=== PATIENT | female | born 1955 | race Caucasian/White ===

== ENCOUNTER → 2017-11-08 11:37 | Outpatient (CLI) | payer OTHER, SELFPAY ==
--- NOTE | 2017-11-08 11:41 | DI.RAD.S_ITS ---
PROCEDURE: XR CHEST 2V INDICATIONS: COUGH TECHNIQUE: 2 views of the chest were acquired. COMPARISON: [facility], CHEST 2 VIEW, 05/27/2016, 12:44. [facility], , CHEST FOR PICC PLACEMENT, 05/02/2016, 12:36. [facility], , CHEST FOR PICC PLACEMENT, 05/02/2016, 11:33. FINDINGS: Surgical changes and devices: None. Lungs and pleura: No pleural effusions or pneumothorax. Lungs are clear. Mediastinum: Mediastinal contours are normal. Heart size is normal. Bones and chest wall: No suspicious bony abnormalities. Soft tissues appear unremarkable. IMPRESSION: Normal for age, source of current symptoms is not seen. Dictated by: Seferino Segura M.D. on 11/08/2017 at 12:24 Approved by: Seferino Segura M.D. on 11/08/2017 at 12:24
== END ==
PROVIDERS: Family Provider Physician Assistant; PCP Physician Assistant; Visit Provider Student in an Organized Health Care Education/Training Program
DX: R05 Cough (principal)
CPT/HCPCS: 71046

== ENCOUNTER → 2018-04-13 14:44 | Outpatient (CLI) | payer OTHER, SELFPAY ==
--- NOTE | 2018-04-13 | DI.MG.S_ITS ---
BILATERAL DIGITAL SCREENING MAMMOGRAM 3D/2D WITH CAD: 04/13/2018 CLINICAL: Routine screening. Comparison is made to exams dated: 02/25/2016 mammogram, 08/09/2014 mammogram, and 06/13/2013 mammogram - [facility]. There are scattered fibroglandular elements in both breasts. Current study was also evaluated with a Computer Aided Detection (CAD) system. No significant masses, calcifications, or other findings are seen in either breast. There has been no significant interval change. IMPRESSION: NEGATIVE There is no mammographic evidence of malignancy. A 1 year screening mammogram is recommended. This exam was interpreted at Station ID: [id number]. NOTE: For mammograms, a report in lay terms will be sent to the patient. Approximately 15% of breast malignancies will not be visualized mammographically. In the management of a palpable breast mass, a negative mammogram must not discourage biopsy of a clinically suspicious lesion. Electronically Signed By: Michell sterling/mac:04/13/2018 16:32:15 letter sent: Normal Exam ACR BI-RADS Category 1: Negative 3341F
== END ==
PROVIDERS: Family Provider Physician Assistant; PCP Physician Assistant; Visit Provider Physician Assistant
DX: Z12.31 Encounter for screening mammogram for malignant neoplasm of breast (principal); M85.852 Other specified disorders of bone density and structure, left thigh; Z78.0 Asymptomatic menopausal state
CPT/HCPCS: 77063; 77067; 77080

== ENCOUNTER 2018-07-15 07:54 | Day surgery (SDC) | payer OTHER, SELFPAY ==
[2018-07-15] VITALS (8 sets, daily range): BP systolic 105–121; BP diastolic 69–78; PULSE 60–71; RESP 8–16; TEMP 36–36.6; O2SAT 92–96; BMI 29.9
[2018-07-15] MEDS: SODIUM CHLORIDE 0.9% 1,000 ML 200 ML IV (08:20)
--- NOTE | 2018-07-15 09:26 | PM.HP.1 ---
History of Present Illness Date Patient Seen: 07/15/18 Time Patient Seen: 09:18 Chief complaint: 13366 Colonoscopy Narrative: The patient is a woman who is here for screening colonoscopy. Her last exam was over 10 years ago. She does have a history of polyps being removed. on the operation was an appendectomy performed elsewhere after which she developed an abscess. Patient History Surgical History (Updated 07/15/18 @ 09:27 by Nick Cartagena MD) S/P appendectomy (Resolved) Social History household members: spouse Family & Social History Social History: household members spouse Review of Systems Review of Systems All systems reviewed & are unremarkable except as noted in HPI and below Exam Vital Signs (past 8 hours): - 07/15/18 08:15 Temperature 97.8 F Pulse Rate 71 Respiratory Rate 15 Blood Pressure 115/78 Pulse Oximetry 94 Oxygen Delivery Method Room Air Narrative Exam Narrative: Pleasant cooperative patient no apparent distress. Lungs are clear to auscultation. No rales or rhonchi. Heart regular rate and rhythm no murmur gallop. Abdomen is soft nontender without mass. No obvious hernias. Patient is alert and oriented x3. Assessment & Plan Assessment & Plan narrative: The patient for a screening colonoscopy. I have discussed the procedure with them. Risks of bleeding, perforation which would necessitate major operation, failure to find remove all lesions, the potential tattoo were all discussed. All questions were answered. They wished to proceed.
--- NOTE | 2018-07-15 09:28 | PM.PREOP ---
Pre-operative Note Interval Note History & Physical reviewed/Exam performed by Physician: Yes Changes to H&P: No ASA Class (for procedural sedation): I
[2018-07-15] MEDS: MIDAZOLAM 5 MG/5 ML VIAL IV (09:41)
[2018-07-15] MEDS: fentaNYL 250 MCG/5 ML INJ IV (09:41)
--- NOTE | 2018-07-15 10:02 | P.OP.ENDO_ITS ---
Operative Date/Time/Diagnoses Date of procedure: 07/15/18 Time of procedure: 09:59 Pre-op diagnosis: Screening examination. Last exam 10 years ago. Patient has a personal history of polyps. Last colonoscopy was done in [place]. Procedure & Clinicians Study performed: Colonoscopy Same procedure as scheduled: Yes Indications: Screening Surgeon: Nick Cartagena Procedure Notes SCOAP/Timeout: Performed Procedure in detail: The patient was placed in the left lateral decubitus position and underwent IV sedation directed by the surgeon consisting of fentanyl and Versed. Digital exam was remarkable for decreased sphincter tone and there were large visible external tags.. The scope was inserted and advanced through the rectum into the sigmoid, descending, transverse, and ascending colon. No lesions were seen. There was some tortuosity and pressure had to be applied to the patient's abdomen in order to get through the colon into the cecum. The cecum was reached identified by the ileocecal valve and the appendiceal opening. The scope was gradually brought out. No Polyps were found. The scope ultimately was retroflexed in the rectum. The appearance was remarkable for internal hemorrhoids without ulceration. The scope was removed and the patient tolerated the procedure well. Prep was very good. Scope withdrawal time: 7.5 minutes Sedation minutes: 27 Findings: internal hemorrhoids (And large external tags from prior hemorrhoidal disease) Specimen(s): none sent Complications: none Recommendations: Colonscopy in 5 years (Due to history of polyps) Plan for aftercare: As needed Follow up: as needed Disposition: PACU
--- NOTE | 2018-07-15 10:11 | SUR.PHASEII ---
Pt drowsy. Drink provided. Call light within reach. Pt declined family at this time.
== END 2018-07-15 11:22 | disposition home or self-care (01) ==
PROVIDERS: PCP Physician Assistant; Visit Provider Specialist
PROC: 0DJD8ZZ Inspection of Lower Intestinal Tract, Via Natural or Artificial Opening Endoscopic (ICD-10-PCS; CPT 45378; principal; 2018-07-15 09:45)
DX: Z86.010 Personal history of colon polyps (principal); K64.8 Other hemorrhoids; K64.4 Residual hemorrhoidal skin tags
CPT/HCPCS: 45378; 99152; 99153; J2250; J3010

== ENCOUNTER → 2018-08-25 15:02 | Outpatient (CLI) | payer OTHER, SELFPAY ==
--- NOTE | 2018-08-25 | DI.RAD.S_ITS ---
PROCEDURE: XR CHEST 2V INDICATIONS: Acute bronchitis, unspecified TECHNIQUE: 2 views of the chest were acquired. COMPARISON: [facility], CR, XR CHEST 2V, 11/08/2017, 11:29. FINDINGS: Surgical changes and devices: None. Lungs and pleura: Lungs are clear. No pleural effusions or pneumothorax. Mediastinum: Mediastinal contours are normal. Heart size is normal. Bones and chest wall: No suspicious bony abnormalities. Soft tissues appear unremarkable. IMPRESSION: No acute cardiopulmonary disease. Dictated by: Nayeli Aguirre M.D. on 08/25/2018 at 17:47 Approved by: Nayeli Aguirre M.D. on 08/25/2018 at 17:47
== END ==
PROVIDERS: PCP Student in an Organized Health Care Education/Training Program; Visit Provider Student in an Organized Health Care Education/Training Program
DX: J20.9 Acute bronchitis, unspecified (principal)
CPT/HCPCS: 71046

== ENCOUNTER → 2018-11-06 11:19 | Outpatient (CLI) | payer OTHER, SELFPAY | PROVIDERS: PCP Student in an Organized Health Care Education/Training Program; Visit Provider Physician Assistant | DX: N39.0 Urinary tract infection, site not specified (principal) | CPT/HCPCS: 87077; 87086; 87186 ==

== ENCOUNTER → 2019-04-25 08:54 | Outpatient (CLI) | payer MEDICARE, SELFPAY ==
--- NOTE | 2019-04-25 | DI.MG.S_ITS ---
BILATERAL DIGITAL SCREENING MAMMOGRAM 3D/2D WITH CAD: 04/25/2019 CLINICAL: Routine screening. Comparison is made to exams dated: 04/13/2018 mammogram - [facility], 02/25/2016 mammogram, and 08/09/2014 mammogram - [facility]. There are scattered fibroglandular elements in both breasts. Current study was also evaluated with a Computer Aided Detection (CAD) system. No significant masses, calcifications, or other findings are seen in either breast. There has been no significant interval change. IMPRESSION: NEGATIVE There is no mammographic evidence of malignancy. A 1 year screening mammogram is recommended. This exam was interpreted at Station ID: [id number]. NOTE: For mammograms, a report in lay terms will be sent to the patient. Approximately 15% of breast malignancies will not be visualized mammographically. In the management of a palpable breast mass, a negative mammogram must not discourage biopsy of a clinically suspicious lesion. Electronically Signed By: Michell sterling/mac:04/25/2019 09:29:42 letter sent: Normal Exam ACR BI-RADS Category 1: Negative 3341F
== END ==
PROVIDERS: PCP Student in an Organized Health Care Education/Training Program; Referring Provider Student in an Organized Health Care Education/Training Program; Visit Provider Student in an Organized Health Care Education/Training Program
DX: Z12.31 Encounter for screening mammogram for malignant neoplasm of breast (principal)
CPT/HCPCS: 77063; 77067

== ENCOUNTER → 2019-06-21 10:38 | Outpatient (CLI) | payer MEDICARE, SELFPAY ==
[2019-06-21 11:47] LABS: Add Manual Diff / Slide Review NO; Basophils Absolute Auto 0 /uL (0-100); Basophils Percent Auto 1.1 % (0-2); Eosinophils Absolute Auto 100 /uL (0-450); Hemoglobin 14.6 g/dL (12.0-16.0); Lymphocytes Absolute Auto 1500 /uL (1100-4500); Lymphocytes Percent Auto 42.7 % (25-40); Mean Corpuscular HGB Conc 33.9 % (30-36); Mean Corpuscular Hemoglobin 30.3 PG (26-34); Mean Corpuscular Volume 89.3 fL (80-100); Monocytes Absolute Auto 300 /uL (0-900); Monocytes Percent Auto 8.7 % (3-14); Neutrophils Absolute Auto 1600 /uL (1500-7000); Neutrophils Percent Auto 44.5 % (50-75); Platelet Count 336 X10^3/uL (150-400); Red Blood Cell Count 4.81 X10^6/uL (4.0-5.2); Red Cell Distribution Width 13.4 % (11.6-14.8); White Blood Cell Count 3.6 X10^3/uL (4.5-11.0)
[2019-06-21 12:09] LABS: BUN Creatinine Ratio 31.7 (6-22); Blood Urea Nitrogen 19 mg/dL (7-17); Calcium 9.8 mg/dL (8.4-10.2); Carbon Dioxide 28 mmol/L (22-32); Chloride 104 mmol/L (98-107); Cholesterol 236 mg/dL (140-199); Estimated Glomerular Filt Rate > 60.0 mL/min (>60); Glucose 94 mg/dL (80-110); HDL Cholesterol 54 mg/dL (40-60); HEMOLYSIS < 15 (0-50); LDL Cholesterol Calculated 159 mg/dL (<100); Potassium 4.4 mmol/L (3.4-5.1); Sodium 140 mmol/L (137-145); Triglycerides 117 mg/dL (35-150)
[2019-06-21 12:59] LABS: Thyroid Stimulating Hormone 1.31 uIU/mL (0.47-4.68)
[2019-06-21 13:01] LABS: Cancer Antigen 125 < 5.5 U/mL (0-35)
== END ==
PROVIDERS: PCP Student in an Organized Health Care Education/Training Program; Referring Provider Student in an Organized Health Care Education/Training Program; Visit Provider Student in an Organized Health Care Education/Training Program
DX: E78.2 Mixed hyperlipidemia (principal); E16.2 Hypoglycemia, unspecified
CPT/HCPCS: 36415; 80048; 80061; 84443; 85025; 86304

== ENCOUNTER → 2019-11-06 12:37 | Outpatient (CLI) | payer MEDICARE, SELFPAY ==
--- NOTE | 2019-11-06 | DI.RAD.S_ITS ---
PROCEDURE: XR CHEST 2V INDICATIONS: COUGH TECHNIQUE: 2 views of the chest were acquired. COMPARISON: [facility], CR, XR CHEST 2V, 08/25/2018, 15:04. [facility], CR, XR CHEST 2V, 11/08/2017, 11:29. FINDINGS: Surgical changes and devices: None. Lungs and pleura: Lungs are clear. No pleural effusions or pneumothorax. Mediastinum: Mediastinal contours are normal. Heart size is normal. Bones and chest wall: No suspicious bony abnormalities. Soft tissues appear unremarkable. IMPRESSION: Normal for age, source of current cough symptoms is not seen. Dictated by: Seferino Segura M.D. on 11/06/2019 at 15:42 Approved by: Seferino Segura M.D. on 11/06/2019 at 15:43
== END ==
PROVIDERS: PCP Student in an Organized Health Care Education/Training Program; Referring Provider Student in an Organized Health Care Education/Training Program; Visit Provider Student in an Organized Health Care Education/Training Program
DX: R05 Cough (principal)
CPT/HCPCS: 71046

== ENCOUNTER → 2020-04-12 09:11 | Outpatient (CLI) | payer OTHER, SELFPAY ==
--- NOTE | 2020-04-12 | DI.US.S_ITS ---
ULTRASOUND OF LEFT BREAST: 04/12/2020 CLINICAL: Focal left breast pain. Comparison is made to exams dated: 04/12/2020 mammogram, 04/25/2019 mammogram, 04/13/2018 mammogram - [facility], 02/25/2016 mammogram, 08/09/2014 mammogram, and 06/13/2013 mammogram - [facility]. Color flow and Doppler ultrasound of the left breast were performed. No abnormality which corresponds with the pain is seen. IMPRESSION: NEGATIVE There is no sonographic evidence of malignancy. There is no abnormality seen in the left breast to correspond with the pain in the lower outer quadrant. Return to annual mammogram screening schedule is recommended. This exam was interpreted at Station ID: [id number]. Electronically Signed By: Carlitos Garcia acr/:04/22/2020 08:57:49 letter sent: Normal Exam Ultrasound BI-RADS: 1 Negative
--- NOTE | 2020-04-12 | DI.MG.S_ITS ---
BILATERAL DIGITAL DIAGNOSTIC MAMMOGRAM 3D/2D: 04/12/2020 CLINICAL: Bilateral breast tenderness. Comparison is made to exams dated: 04/25/2019 mammogram, 04/13/2018 mammogram - [facility], and 02/25/2016 mammogram - [facility]. There are scattered fibroglandular elements in both breasts. No significant masses, calcifications, or other findings are seen in either breast. IMPRESSION: INCOMPLETE: NEEDS ADDITIONAL IMAGING EVALUATION There is no abnormality seen in the left breast to correspond with the pain at 9 o'clock, however, ultrasound is recommended. This exam was interpreted at Station ID: [id number]. NOTE: For mammograms, a report in lay terms will be sent to the patient. Approximately 15% of breast malignancies will not be visualized mammographically. In the management of a palpable breast mass, a negative mammogram must not discourage biopsy of a clinically suspicious lesion. Electronically Signed By: Carlitos Garcia acr/:04/22/2020 08:56:10 letter sent: Additional Imaging Needed ACR BI-RADS Category 0: Incomplete 3340F
== END ==
PROVIDERS: PCP Student in an Organized Health Care Education/Training Program; Referring Provider Student in an Organized Health Care Education/Training Program; Visit Provider Student in an Organized Health Care Education/Training Program
DX: R92.8 Other abnormal and inconclusive findings on diagnostic imaging of breast (principal); N64.4 Mastodynia
CPT/HCPCS: 76642; 77066; G0279

== ENCOUNTER → 2020-06-21 20:07 | Outpatient (ROUT) | payer OTHER, SELFPAY ==
[2020-06-21 21:20] LABS: Cancer Antigen 125 < 5.5 U/mL (0-35)
== END ==
PROVIDERS: PCP Student in an Organized Health Care Education/Training Program; Visit Provider Student in an Organized Health Care Education/Training Program
DX: Z12.89 Encounter for screening for malignant neoplasm of other sites (principal); Z80.41 Family history of malignant neoplasm of ovary
CPT/HCPCS: 86304

== ENCOUNTER → 2021-06-09 09:13 | Outpatient (CLI) | payer MEDICARE, SELFPAY ==
[2021-06-09 11:25] LABS: Add Manual Diff / Slide Review NO; Basophils Absolute Auto 0 /uL (0-100); Basophils Percent Auto 1.2 % (0-2); Eosinophils Absolute Auto 100 /uL (0-450); Eosinophils Percent Auto 2.4 % (2-4); Hematocrit 39.8 % (36-46); Hemoglobin 13.6 g/dL (12.0-16.0); Lymphocytes Absolute Auto 1600 /uL (1100-4500); Lymphocytes Percent Auto 50.1 % (25-40); Mean Corpuscular HGB Conc 34.2 % (30-36); Mean Corpuscular Hemoglobin 30.5 PG (26-34); Mean Corpuscular Volume 89.2 fL (80-100); Monocytes Absolute Auto 300 /uL (0-900); Neutrophils Absolute Auto 1200 /uL (1500-7000); Neutrophils Percent Auto 37.3 % (50-75); Platelet Count 326 X10^3/uL (150-400); Red Blood Cell Count 4.46 X10^6/uL (4.0-5.2); Red Cell Distribution Width 13.6 % (11.6-14.8); White Blood Cell Count 3.2 X10^3/uL (4.5-11.0)
[2021-06-09 12:33] LABS: Alanine Aminotransferase 32 IU/L (<35); Albumin 4.3 g/dL (3.5-5.0); Albumin Globulin Ratio 1.6 (1.0-2.8); Alkaline Phosphatase 73 U/L (38-126); Aspartate Aminotransferase 33 IU/L (14-36); BUN Creatinine Ratio 12.5 (6-22); Bilirubin Total 0.4 mg/dL (0.2-1.3); Blood Urea Nitrogen 8 mg/dL (7-17); Calcium 9.3 mg/dL (8.4-10.2); Carbon Dioxide 27 mmol/L (22-32); Chloride 107 mmol/L (98-107); Estimated Glomerular Filt Rate > 60.0 mL/min (>60); Globulin 2.7 g/dL (1.7-4.1); Glucose 87 mg/dL (80-110); HEMOLYSIS < 15 (0-50); Potassium 4.6 mmol/L (3.4-5.1); Sodium 141 mmol/L (137-145)
[2021-06-09 12:44] LABS: LDL Cholesterol Direct 88 mg/dL (<100)
[2021-06-09 18:13] LABS: Hep C Virus Ab w/Reflex Quant NEGATIVE s/c (NEGATIVE)
== END ==
PROVIDERS: PCP Student in an Organized Health Care Education/Training Program; Referring Provider Physician Assistant; Visit Provider Physician Assistant
DX: M85.88 Other specified disorders of bone density and structure, other site (principal); Z00.00 Encounter for general adult medical examination without abnormal findings; Z78.9 Other specified health status
CPT/HCPCS: 36415; 80053; 83721; 85025; 86803

== ENCOUNTER → 2021-07-29 08:28 | Outpatient (CLI) | payer MEDICARE, SELFPAY ==
[2021-07-29 09:39] LABS: Add Manual Diff / Slide Review NO; Basophils Absolute Auto 0 /uL (0-100); Basophils Percent Auto 0.8 % (0-2); Eosinophils Absolute Auto 100 /uL (0-450); Eosinophils Percent Auto 2.6 % (2-4); Hematocrit 40.4 % (36-46); Lymphocytes Absolute Auto 1400 /uL (1100-4500); Lymphocytes Percent Auto 38.4 % (25-40); Mean Corpuscular HGB Conc 34.7 % (30-36); Mean Corpuscular Hemoglobin 30.3 PG (26-34); Mean Corpuscular Volume 87.4 fL (80-100); Monocytes Absolute Auto 200 /uL (0-900); Monocytes Percent Auto 6.4 % (3-14); Neutrophils Absolute Auto 1900 /uL (1500-7000); Neutrophils Percent Auto 51.8 % (50-75); Platelet Count 335 X10^3/uL (150-400); Red Blood Cell Count 4.62 X10^6/uL (4.0-5.2); Red Cell Distribution Width 13.7 % (11.6-14.8); White Blood Cell Count 3.6 X10^3/uL (4.5-11.0)
[2021-07-29 09:49] LABS: Hemoglobin A1C% w Est Avg Glu 5.3 % (4.0-6.0)
[2021-07-29 09:56] LABS: Alanine Aminotransferase 40 IU/L (<35); Albumin 4.4 g/dL (3.5-5.0); Albumin Globulin Ratio 1.6 (1.0-2.8); Alkaline Phosphatase 89 U/L (38-126); Aspartate Aminotransferase 31 IU/L (14-36); BUN Creatinine Ratio 26.1 (6-22); Bilirubin Total 0.8 mg/dL (0.2-1.3); Blood Urea Nitrogen 18 mg/dL (7-17); Calcium 9.3 mg/dL (8.4-10.2); Carbon Dioxide 29 mmol/L (22-32); Chloride 105 mmol/L (98-107); Cholesterol 250 mg/dL (140-199); Estimated Glomerular Filt Rate > 60 mL/min (>60); Globulin 2.8 g/dL (1.7-4.1); Glucose 90 mg/dL (80-110); HDL Cholesterol 58 mg/dL (40-60); HEMOLYSIS < 15 (0-50); LDL Cholesterol Calculated 167 mg/dL (<100); Potassium 4.6 mmol/L (3.4-5.1); Sodium 141 mmol/L (137-145); Total Protein 7.2 g/dL (6.3-8.2); Triglycerides 127 mg/dL (35-150)
[2021-07-29 10:44] LABS: Hep C Virus Ab w/Reflex Quant NEGATIVE s/c (NEGATIVE)
== END ==
PROVIDERS: PCP Physician Assistant; Referring Provider Physician Assistant; Visit Provider Physician Assistant
DX: M85.88 Other specified disorders of bone density and structure, other site (principal); Z78.9 Other specified health status; Z00.00 Encounter for general adult medical examination without abnormal findings
CPT/HCPCS: 36415; 80053; 80061; 83036; 85025; 86803

== ENCOUNTER → 2021-08-06 12:38 | Outpatient (CLI) | payer MEDICARE, SELFPAY ==
--- NOTE | 2021-08-06 | DI.MG.S_ITS ---
BILATERAL DIGITAL SCREENING MAMMOGRAM 3D/2D WITH CAD: 08/06/2021 CLINICAL: Routine screening. Comparison is made to exams dated: 04/12/2020 mammogram, 04/25/2019 mammogram, 04/13/2018 mammogram - [facility], and 02/25/2016 mammogram - [facility]. There are scattered fibroglandular elements in both breasts. Current study was also evaluated with a Computer Aided Detection (CAD) system. No significant masses, calcifications, or other findings are seen in either breast. There has been no significant interval change. IMPRESSION: NEGATIVE There is no mammographic evidence of malignancy. A 1 year screening mammogram is recommended. This exam was interpreted at Station ID: [id number]. NOTE: For mammograms, a report in lay terms will be sent to the patient. Approximately 15% of breast malignancies will not be visualized mammographically. In the management of a palpable breast mass, a negative mammogram must not discourage biopsy of a clinically suspicious lesion. Electronically Signed By: Reji gutierres/mac:08/06/2021 13:36:44 letter sent: Normal Exam ACR BI-RADS Category 1: Negative 3341F
== END ==
PROVIDERS: PCP Physician Assistant; Referring Provider Physician Assistant; Visit Provider Physician Assistant
DX: Z12.31 Encounter for screening mammogram for malignant neoplasm of breast (principal)
CPT/HCPCS: 77063; 77067

== ENCOUNTER → 2021-08-21 10:28 | Outpatient (CLI) | payer MEDICARE, SELFPAY | PROVIDERS: PCP Physician Assistant; Visit Provider Physician Assistant | DX: N39.0 Urinary tract infection, site not specified (principal) | CPT/HCPCS: 87077; 87086 ==

== ENCOUNTER → 2021-09-01 12:10 | Outpatient (CLI) | payer MEDICARE, SELFPAY | PROVIDERS: PCP Physician Assistant; Visit Provider Student in an Organized Health Care Education/Training Program | DX: R30.0 Dysuria (principal) | CPT/HCPCS: 87086 ==

== ENCOUNTER → 2021-09-12 09:26 | Outpatient (CLI) | payer MEDICARE, SELFPAY | PROVIDERS: PCP Physician Assistant; Visit Provider Nurse Practitioner Family | DX: N89.8 Other specified noninflammatory disorders of vagina (principal) | CPT/HCPCS: 87210 ==

== ENCOUNTER → 2022-05-06 09:10 | Outpatient (CLI) | payer MEDICARE, SELFPAY ==
[2022-05-06 10:46] LABS: Cholesterol 217 mg/dL (140-199); HDL Cholesterol 58 mg/dL (40-60); LDL Cholesterol Calculated 134 mg/dL (<100); Triglycerides 126 mg/dL (35-150)
== END ==
PROVIDERS: PCP Physician Assistant; Referring Provider Physician Assistant; Visit Provider Physician Assistant
DX: E78.2 Mixed hyperlipidemia (principal)
CPT/HCPCS: 36415; 80061

== ENCOUNTER → 2023-12-07 14:14 | Outpatient (CLI) | payer MEDICARE, SELFPAY ==
--- NOTE | 2023-12-07 | DI.RAD.S_ITS ---
PROCEDURE: XR DEXA AXIAL SKELETON INDICATIONS: OSTEOPOROSIS SCREENING COMPARISON: [facility], CR, XR DEXA AXIAL SKELETON, 04/13/2018, 14:57. FINDINGS: Lumbar Spine: Bone mineral density 0.759 g/cm2, T score -2.6. There is interval 9.2% decrease in total lumbar spine bone mineral density. Left Hip: Bone mineral density 0.768 g/cm2, T score -1.4. There is interval 6% decrease in total left hip bone mineral density. Left Femoral Neck: Bone mineral density 0.575 g/cm2, T score -2.5. There is interval 4.1% decrease in left femoral neck bone mineral density. Right Hip: Bone mineral density 0.769 g/cm2, T score -1.4. There is interval 7.8% decrease in total right hip bone mineral density. Right Femoral Neck: Bone mineral density 0.619 g/cm2, T score -2.1. There is interval 4.9% decrease in right femoral neck bone mineral density. Fracture Risk Calculation (when applicable): 10-year fracture risk of a major osteoporotic fracture 14 percent and of a hip fracture 3.5 percent. (T score greater or equal to -1.0 to: NORMAL) (T score from -1.1 to -2.4: OSTEOPENIA) (T score less than or equal to -2.5: OSTEOPOROSIS) IMPRESSION: Osteoporosis. Follow-up guidelines as follows: Osteoporosis: Consider a repeat DEXA and Vertebral Fracture Assessment (VFA) exam in 2 years or sooner if medically necessary, to reassess this patient's status. Osteopenia: Consider a repeat DEXA in 2-3 years to reassess this patient's status, or if there is a new clinical indication. Normal: Consider a repeat DEXA in 5 years or sooner, or if there is a new clinical indication. All treatment decisions require clinical judgment and consideration of individual patient factors, including patient preferences, comorbidities, previous drug use, risk factors not captured in the FRAX model (e.g., frailty, falls, vitamin D deficiency, increased bone turnover, interval significant decline in bone density ) and possible under- or over-estimation of fracture risk by FRAX. In addition, the NOF Guide recommends that FDA-approved medical therapies be considered in postmenopausal women and men age >= 50 years with a: * Hip or vertebral (clinical or morphometric) fracture * T-score of <=-2.5 at the spine or hip * Ten-year fracture probability by FRAX of >= 3% for hip fracture or >=20% for major osteoporotic fracture. People with diagnosed cases of osteoporosis or at high risk for fracture should have regular bone mineral density tests. For patients eligible for Medicare, routine testing is allowed once every 2 years. The testing frequency can be increased to one year for patients who have rapidly progressing disease, those who are receiving or discontinuing medical therapy to restore bone mass, or have additional risk factors. Dictated by: Qasim Kevin M.D. on 12/07/2023 at 18:19 Approved by: Qasim Kevin M.D. on 12/07/2023 at 18:21
--- NOTE | 2023-12-07 | DI.MG.S_ITS ---
BILATERAL DIGITAL SCREENING MAMMOGRAM 3D/2D WITH CAD: 12/07/2023 CLINICAL: Routine screening. Comparison is made to exams dated: 02/03/2023 mammogram - [facility], 08/06/2021 mammogram, 04/12/2020 mammogram, 04/25/2019 mammogram, and 04/13/2018 mammogram - [facility]. There are scattered areas of fibroglandular density (category b / 25%-50% glandular tissue). Current study was also evaluated with a Computer Aided Detection (CAD) system. No significant masses, calcifications, or other findings are seen in either breast. There has been no significant interval change. IMPRESSION: NEGATIVE There is no mammographic evidence of malignancy. A 1 year screening mammogram is recommended. Based on the Tyrer Cuzick model (a risk assessment model) the patient's lifetime risk is 4.9% and her 10 year risk is 2.9%. According to the ACR, ACS, and NCCN guidelines, an annual breast MRI exam along with mammogram is recommended if the patient's lifetime risk is 20% or greater. This exam was interpreted at Station ID: [id number]. NOTE: For mammograms, a report in lay terms will be sent to the patient. Approximately 15% of breast malignancies will not be visualized mammographically. In the management of a palpable breast mass, a negative mammogram must not discourage biopsy of a clinically suspicious lesion. Electronically Signed By: Reji gutierres/mac:12/07/2023 16:24:12 letter sent: Normal Exam ACR BI-RADS Category 1: Negative
== END ==
PROVIDERS: PCP Physician Assistant; Referring Provider Registered Nurse; Visit Provider Registered Nurse
DX: Z12.31 Encounter for screening mammogram for malignant neoplasm of breast; Z13.820 Encounter for screening for osteoporosis; M81.0 Age-related osteoporosis without current pathological fracture
CPT/HCPCS: 77063; 77067; 77080

== ENCOUNTER → 2024-01-06 15:59 | Outpatient (CLI) | payer SELFPAY | PROVIDERS: PCP Physician Assistant | DX: Z00.00 Encounter for general adult medical examination without abnormal findings (principal) | CPT/HCPCS: 36415 ==

== ENCOUNTER → 2024-04-14 11:03 | Outpatient (CLI) | payer MEDICARE, OTHER, SELFPAY ==
--- NOTE | 2024-04-14 11:29 | EKG_ITS ---
[place] [id number] [place] [id number] Test Date: 2024-04-14 Pat Name: Lidia Mancera Department: [facility] Room: Gender: Female [employer] Information [employer]: JULIET : 1955 Requested By: Order Number: [id number] Reading MD: Marc Nick Measurements Intervals [place] Rate: 64 P: 35 OR: 166 QRS: 37 QRSD: 90 T: 39 QT: 410 QTc: 422 Interpretive Statements Normal sinus rhythm Low voltage QRS Electronically Signed On 04-19-2024 23:41:52 PST by Marc Nick
== END ==
LOC: RESP 11:18
PROVIDERS: PCP Registered Nurse; Referring Provider Otolaryngology; Visit Provider Otolaryngology
DX: Z01.810 Encounter for preprocedural cardiovascular examination (principal)
CPT/HCPCS: 93005

== ENCOUNTER 2024-05-27 14:44 | Inpatient (IN) | payer MEDICARE, OTHER, SELFPAY ==
[2024-05-27] VITALS (22 sets, daily range): BP systolic 140–198; BP diastolic 63–103; PULSE 62–73; RESP 18–20; TEMP 37; O2SAT 91–99; BMI 28.1
--- NOTE | 2024-05-27 15:07 | ED_ITS ---
HPI - General Adult <Bernadine Bhatia MD - Last Filed: 05/28/24 08:10> General Chief complaint: Abdominal Pain Stated complaint: had sx 2 weeks ago,extreme px, chills Time Seen by Provider: 05/27/24 15:07 Source: patient Mode of arrival: Ambulatory History of Present Illness HPI narrative: 68-year-old woman minimal medical issues, had a face lift approximately 2 weeks ago is healing well she had an episode of severe constipation on Wednesday secondary to hydrocodone. She subsequently taking suppositories and enemas and sounds like she has appropriately cleaned out her bowels. At 2:00 a.m. she awoke with severe diffuse abdominal pain, presents today still having significant abdominal pain. She is passing flatus. Nausea but no vomiting, no chest pain or palpitations Related Data Home Medications Medication Instructions Recorded Confirmed acetaminophen 650 mg PO PRN PRN Pain, Mild 05/27/24 05/28/24 Allergies Allergy/AdvReac Type Severity Reaction Status Date / Time No Known Drug Allergies Allergy Verified 09/12/21 09:32 Review of Systems <Bernadine Bhatia MD - Last Filed: 05/28/24 08:10> Review of Systems Narrative: Pertinent positive and negative findings as per HPI Patient History <Bernadine Bhatia MD - Last Filed: 05/28/24 08:10> Medical History Hand laceration Surgical History S/P appendectomy Social History household members: spouse Smoking Status: Never smoker Smoking Status: Never smoker Exam <Bernadine Bhatia MD - Last Filed: 05/28/24 08:10> Initial Vital Signs Initial Vital Signs: Vital Signs Temperature 98.6 F 05/27/24 14:51 Pulse Rate 73 05/27/24 14:51 Respiratory Rate 20 05/27/24 14:51 Blood Pressure 186/89 H 05/27/24 14:51 Pulse Oximetry 99 05/27/24 14:51 Oxygen Delivery Method Room Air 05/27/24 14:51 General: Appears to be in pain but Able to give a complete and coherent history. Well-nourished well-developed HEENT: Moist mucous membranes, normal sclera with reactive pupils, Respiratory: Lungs are clear to auscultation, no wheezing no rales no rhonchi. Full and symmetrical air movement Cardiac: Regular rate and rhythm no murmurs no bruits Abdomen: Soft, moderate tenderness in the right lower quadrant with guarding but no rebound Skin: Warm and dry, no rashes Neurologic: Grossly neurologically intact with no obvious asymmetries or abnormalities Extremities: No trauma, well perfused Psych: Cooperative, appropriate insight and affect <Joselyn Echols DO - Last Filed: 05/27/24 23:39> Initial Vital Signs Initial Vital Signs: Vital Signs Temperature 98.6 F 05/27/24 14:51 Pulse Rate 73 05/27/24 14:51 Respiratory Rate 20 05/27/24 14:51 Blood Pressure 186/89 H 05/27/24 14:51 Pulse Oximetry 99 05/27/24 14:51 Oxygen Delivery Method Room Air 05/27/24 14:51 Course <Bernadine Bhatia MD - Last Filed: 05/28/24 08:10> Orders Ordered: Acetaminophen (Acetaminophen 325 Mg Tablet) 650 mg PO Q6H [facility] Last Admin: 05/28/24 06:24 Dose: Not Given Documented By: Admin: 05/28/24 00:15 Dose: 650 mg Documented By: Al Hydrox/Mg Hydrox/Simethicone (Mag Hydrox/Alum/Simeth 30 Ml Udc) 30 ml PO BID [facility] Last Admin: 05/28/24 00:16 Dose: 30 ml Documented By: Heparin Sodium (Porcine) (Heparin 5,000 Unit/Ml Vial) 5,000 unit SUBCUT BID [facility] Last Admin: 05/28/24 00:14 Dose: 5,000 unit Documented By: Hydromorphone HCl (Hydromorphone 0.5 Mg Inj) 0.5 mg IV Q2H PRN PRN Reason: Pain, Severe (7-10) Sodium Chloride (Normal Saline 0.9%) 1,000 mls @ 100 mls/hr IV CONT [facility] Last Admin: 05/28/24 00:20 Dose: 100 mls/hr Documented By: Piperacillin Sod/Tazobactam (Sod 3.375 gm/ Sodium Chloride) 100 mls @ 25 mls/hr IV Q8H [facility] Last Admin: 05/28/24 04:07 Dose: 25 mls/hr Documented By: Ibuprofen (Ibuprofen 400 Mg Tablet) 400 mg PO Q4H [facility] Last Admin: 05/28/24 04:05 Dose: Not Given Documented By: Admin: 05/28/24 00:15 Dose: 400 mg Documented By: Naloxone HCl (Naloxone 0.4 Mg/Ml Vial) 0.2 mg IV Q2MIN PRN PRN Reason: Opiate Reversal Ondansetron HCl (Ondansetron 4 Mg/2 Ml Inj) 4 mg IV Q8HR PRN PRN Reason: Nausea And Vomiting Oxycodone HCl (Oxycodone Ir 5 Mg Tablet) 5 mg PO Q3H PRN PRN Reason: Pain, Moderate (4-6) Pantoprazole Sodium (Pantoprazole Dr 20 Mg Tablet) 20 mg PO 0600 [facility] Last Admin: 05/28/24 06:24 Dose: 20 mg Documented By: Discontinued Medications Hydromorphone HCl (Hydromorphone 0.5 Mg Inj) 0.5 mg IV NOW ONE Stop: 05/27/24 18:52 Last Admin: 05/27/24 19:06 Dose: 0.5 mg Documented By: YOKO Sodium Chloride (Normal Saline 0.9%) 1,000 mls @ 1,000 mls/hr IV BOLUS ONE Stop: 05/27/24 16:14 Last Infusion: 05/27/24 16:50 Dose: Infused Documented By: Admin: 05/27/24 15:31 Dose: 1,000 mls/hr Documented By: YOKO Piperacillin Sod/Tazobactam (Sod 4.5 gm/ Sodium Chloride) 100 mls @ 200 mls/hr IV NOW ONE Stop: 05/27/24 21:48 Piperacillin Sod/Tazobactam (Sod 4.5 gm/ Sodium Chloride) 100 mls @ 200 mls/hr IV NOW ONE Stop: 05/28/24 00:14 Last Infusion: 05/28/24 00:10 Dose: Infused Documented By: Admin: 05/27/24 23:36 Dose: 200 mls/hr Documented By: Ketorolac Tromethamine (Ketorolac 30 Mg/Ml Vial) 15 mg IV NOW ONE Stop: 05/27/24 15:16 Last Admin: 05/27/24 15:30 Dose: 15 mg Documented By: YOKO Ondansetron HCl (Ondansetron 4 Mg/2 Ml Inj) 4 mg IV NOW PRN PRN Reason: Nausea And Vomiting Last Admin: 05/27/24 19:05 Dose: 4 mg Documented By: YOKO Ondansetron HCl (Ondansetron 4 Mg Odt) 4 mg PO NOW PRN PRN Reason: Nausea And Vomiting Ondansetron HCl (Ondansetron 4 Mg/2 Ml Inj) 4 mg IV NOW ONE Stop: 05/27/24 15:16 Last Admin: 05/27/24 15:31 Dose: 4 mg Documented By: YOKO Potassium Chloride (Potassium Chloride 20 Meq Tab) 40 meq PO NOW ONE Stop: 05/28/24 07:46 Vital Signs Vital signs: Vital Signs - 8 hr 05/27/24 16:00 05/27/24 16:00 05/27/24 16:30 Pulse Rate 62 62 Respiratory Rate Blood Pressure 192/77 H Pulse Oximetry 97 93 Oxygen Delivery Method 05/27/24 16:31 05/27/24 16:31 05/27/24 17:00 Pulse Rate 63 Respiratory Rate Blood Pressure 143/63 H 162/70 H Pulse Oximetry 95 Oxygen Delivery Method 05/27/24 17:00 05/27/24 17:33 05/27/24 17:34 Pulse Rate 62 63 Respiratory Rate Blood Pressure 188/77 H Pulse Oximetry 96 94 Oxygen Delivery Method 05/27/24 17:34 05/27/24 18:00 05/27/24 18:01 Pulse Rate 62 62 Respiratory Rate Blood Pressure 187/86 H Pulse Oximetry 97 93 Oxygen Delivery Method 05/27/24 18:01 05/27/24 18:30 05/27/24 18:31 Pulse Rate 62 71 Respiratory Rate Blood Pressure 188/83 H Pulse Oximetry 94 97 Oxygen Delivery Method 05/27/24 18:31 05/27/24 19:00 05/27/24 19:01 Pulse Rate 62 71 69 Respiratory Rate Blood Pressure Pulse Oximetry 98 98 97 Oxygen Delivery Method Room Air 05/27/24 19:01 05/27/24 21:13 05/27/24 21:14 Pulse Rate 66 Respiratory Rate Blood Pressure 140/66 Pulse Oximetry 96 95 Oxygen Delivery Method Room Air 05/27/24 21:14 05/27/24 21:30 05/27/24 21:30 Pulse Rate 66 Respiratory Rate Blood Pressure 157/71 H 163/73 H Pulse Oximetry 91 Oxygen Delivery Method 05/27/24 22:00 05/27/24 22:01 05/27/24 22:01 Pulse Rate 63 64 Respiratory Rate 18 Blood Pressure 153/67 H Pulse Oximetry 97 96 Oxygen Delivery Method <Joselyn Echols, DO - Last Filed: 05/27/24 23:39> Orders Ordered: Acetaminophen (Acetaminophen 325 Mg Tablet) 650 mg PO Q6H [facility] Last Admin: 05/28/24 06:24 Dose: Not Given Documented By: Admin: 05/28/24 00:15 Dose: 650 mg Documented By: Al Hydrox/Mg Hydrox/Simethicone (Mag Hydrox/Alum/Simeth 30 Ml Udc) 30 ml PO BID [facility] Last Admin: 05/28/24 00:16 Dose: 30 ml Documented By: Heparin Sodium (Porcine) (Heparin 5,000 Unit/Ml Vial) 5,000 unit SUBCUT BID [facility] Last Admin: 05/28/24 00:14 Dose: 5,000 unit Documented By: Hydromorphone HCl (Hydromorphone 0.5 Mg Inj) 0.5 mg IV Q2H PRN PRN Reason: Pain, Severe (7-10) Sodium Chloride (Normal Saline 0.9%) 1,000 mls @ 100 mls/hr IV CONT [facility] Last Admin: 05/28/24 00:20 Dose: 100 mls/hr Documented By: Piperacillin Sod/Tazobactam (Sod 3.375 gm/ Sodium Chloride) 100 mls @ 25 mls/hr IV Q8H [facility] Last Admin: 05/28/24 04:07 Dose: 25 mls/hr Documented By: Ibuprofen (Ibuprofen 400 Mg Tablet) 400 mg PO Q4H [facility] Last Admin: 05/28/24 04:05 Dose: Not Given Documented By: Admin: 05/28/24 00:15 Dose: 400 mg Documented By: Naloxone HCl (Naloxone 0.4 Mg/Ml Vial) 0.2 mg IV Q2MIN PRN PRN Reason: Opiate Reversal Ondansetron HCl (Ondansetron 4 Mg/2 Ml Inj) 4 mg IV Q8HR PRN PRN Reason: Nausea And Vomiting Oxycodone HCl (Oxycodone Ir 5 Mg Tablet) 5 mg PO Q3H PRN PRN Reason: Pain, Moderate (4-6) Pantoprazole Sodium (Pantoprazole Dr 20 Mg Tablet) 20 mg PO 0600 [id number] Last Admin: 05/28/24 06:24 Dose: 20 mg Documented By: Discontinued Medications Hydromorphone HCl (Hydromorphone 0.5 Mg Inj) 0.5 mg IV NOW ONE Stop: 05/27/24 18:52 Last Admin: 05/27/24 19:06 Dose: 0.5 mg Documented By: YOKO Sodium Chloride (Normal Saline 0.9%) 1,000 mls @ 1,000 mls/hr IV BOLUS ONE Stop: 05/27/24 16:14 Last Infusion: 05/27/24 16:50 Dose: Infused Documented By: Admin: 05/27/24 15:31 Dose: 1,000 mls/hr Documented By: YOKO Piperacillin Sod/Tazobactam (Sod 4.5 gm/ Sodium Chloride) 100 mls @ 200 mls/hr IV NOW ONE Stop: 05/27/24 21:48 Piperacillin Sod/Tazobactam (Sod 4.5 gm/ Sodium Chloride) 100 mls @ 200 mls/hr IV NOW ONE Stop: 05/28/24 00:14 Last Infusion: 05/28/24 00:10 Dose: Infused Documented By: Admin: 05/27/24 23:36 Dose: 200 mls/hr Documented By: Ketorolac Tromethamine (Ketorolac 30 Mg/Ml Vial) 15 mg IV NOW ONE Stop: 05/27/24 15:16 Last Admin: 05/27/24 15:30 Dose: 15 mg Documented By: YOKO Ondansetron HCl (Ondansetron 4 Mg/2 Ml Inj) 4 mg IV NOW PRN PRN Reason: Nausea And Vomiting Last Admin: 05/27/24 19:05 Dose: 4 mg Documented By: YOKO Ondansetron HCl (Ondansetron 4 Mg Odt) 4 mg PO NOW PRN PRN Reason: Nausea And Vomiting Ondansetron HCl (Ondansetron 4 Mg/2 Ml Inj) 4 mg IV NOW ONE Stop: 05/27/24 15:16 Last Admin: 05/27/24 15:31 Dose: 4 mg Documented By: YOKO Potassium Chloride (Potassium Chloride 20 Meq Tab) 40 meq PO NOW ONE Stop: 05/28/24 07:46 Vital Signs Vital signs: Vital Signs - 8 hr 05/27/24 16:00 05/27/24 16:00 05/27/24 16:30 Pulse Rate 62 62 Respiratory Rate Blood Pressure 192/77 H Pulse Oximetry 97 93 Oxygen Delivery Method 05/27/24 16:31 05/27/24 16:31 05/27/24 17:00 Pulse Rate 63 Respiratory Rate Blood Pressure 143/63 H 162/70 H Pulse Oximetry 95 Oxygen Delivery Method 05/27/24 17:00 05/27/24 17:33 05/27/24 17:34 Pulse Rate 62 63 Respiratory Rate Blood Pressure 188/77 H Pulse Oximetry 96 94 Oxygen Delivery Method 05/27/24 17:34 05/27/24 18:00 05/27/24 18:01 Pulse Rate 62 62 Respiratory Rate Blood Pressure 187/86 H Pulse Oximetry 97 93 Oxygen Delivery Method 05/27/24 18:01 05/27/24 18:30 05/27/24 18:31 Pulse Rate 62 71 Respiratory Rate Blood Pressure 188/83 H Pulse Oximetry 94 97 Oxygen Delivery Method 05/27/24 18:31 05/27/24 19:00 05/27/24 19:01 Pulse Rate 62 71 69 Respiratory Rate Blood Pressure Pulse Oximetry 98 98 97 Oxygen Delivery Method Room Air 05/27/24 19:01 05/27/24 21:13 05/27/24 21:14 Pulse Rate 66 Respiratory Rate Blood Pressure 140/66 Pulse Oximetry 96 95 Oxygen Delivery Method Room Air 05/27/24 21:14 05/27/24 21:30 05/27/24 21:30 Pulse Rate 66 Respiratory Rate Blood Pressure 157/71 H 163/73 H Pulse Oximetry 91 Oxygen Delivery Method 05/27/24 22:00 05/27/24 22:01 05/27/24 22:01 Pulse Rate 63 64 Respiratory Rate 18 Blood Pressure 153/67 H Pulse Oximetry 97 96 Oxygen Delivery Method Medical Decision Making <Bernadine Bhatia MD - Last Filed: 05/28/24 08:10> Lab Data 05/28/24 04:20 05/28/24 04:20 Labs: Lab Results 05/27/24 05/27/24 Range/Units 15:10 18:28 WBC 15.0 H (4.5-11.0) X10^3/uL RBC 4.74 (4.0-5.2) X10^6/uL Hgb 14.1 (12.0-16.0) g/dL Hct 41.7 (36-46) % MCV 88.1 (80-100) fL MCH 29.8 (26-34) PG MCHC 33.9 (30-36) % RDW 13.4 (11.6-14.8) % Plt Count 439 H (150-400) X10^3/uL Neut % (Auto) 87.0 H (50-75) % Lymph % (Auto) 9.1 L (25-40) % [place] % (Auto) 3.3 (3-14) % Eos % (Auto) 0.2 L (2-4) % Baso % (Auto) 0.4 (0-2) % Neut # (Auto) 20541 H (9204-4238) /uL Lymph # (Auto) 1400 (5320-3384) /uL [place] # (Auto) 500 (0-900) /uL Eos # (Auto) 0 (0-450) /uL Baso # (Auto) 100 (0-100) /uL Sodium 134 L (137-145) mmol/L Potassium 3.6 (3.4-5.1) mmol/L Chloride 100 (98-107) mmol/L Carbon Dioxide 24 (22-32) mmol/L BUN 17 (7-17) mg/dL Creatinine 0.57 (0.52-1.04) mg/dL Estimated GFR > 60 (>60) mL/min BUN/Creatinine Ratio 29.8 H (6-22) Glucose 114 H (80-110) mg/dL Lactate 1.0 (0.7-2.1) mmol/L Calcium 9.3 (8.4-10.2) mg/dL Total Bilirubin 0.8 (0.2-1.3) mg/dL AST 29 (14-36) IU/L ALT 37 H (<35) IU/L Alkaline Phosphatase 105 (38-126) U/L Total Protein 7.5 (6.3-8.2) g/dL Albumin 4.6 (3.5-5.0) g/dL Globulin 2.9 (1.7-4.1) g/dL Albumin/Globulin Ratio 1.6 (1.0-2.8) Lipase 27 (23-300) U/L Urine Dip Bedside Urine Glucose Negative Bedside Urine Bilirubin - Negative Bedside Urine Ketone ++ 40 Urine Specific [place] 1.020 Bedside Urine Occult Blood - Negative Bedside Urine pH 6.0 Bedside Urine Protein - Negative Bedside Urine Urobilinogen - Negative Bedside Urine Nitrite - Negative Bedside Urine Leukocytes - Negative Esterase Point of care testing: Urine Dip Bedside Urine Glucose Negative Bedside Urine Bilirubin - Negative Bedside Urine Ketone ++ 40 Urine Specific [place] 1.020 Bedside Urine Occult Blood - Negative Bedside Urine pH 6.0 Bedside Urine Protein - Negative Bedside Urine Urobilinogen - Negative Bedside Urine Nitrite - Negative Bedside Urine Leukocytes - Negative Esterase MDM Narrative Medical decision making narrative: CC: Acute onset significant abdominal pain 2:00 a.m. Complicating co-morbidities: Face lift 2 weeks ago no medications, significant constipation earlier this week secondary to narcotic use postop Data collected from: patient, partner Differential considered: Bowel perforation, intra-abdominal abscess, constipation, bowel obstruction, patient has had appendectomy Exam documented above, pertinent findings include: Patient appears uncomfortable but is otherwise appropriate. Guarding in the right lower quadrant Lab Test results independently reviewed as above. Pertinent findings: CBC shows leukocytosis at 15,000 with 87% leukocytes, no anemia Chemistry so moderately low-sodium 134. Remainder of labs reassuring Lipase is unremarkable Independently reviewed EKG: EKG shows sinus rhythm at a rate of 62 with no acute ischemia Imaging studies independently reviewed: CT scanner is currently down. With shared decision-making we opted to proceed with an acute abdomen series to rule out bowel perforation and obstruction. X- rays do show no free air no obstruction patient is still significantly tender with leukocytosis and CT scan is indicated. Consultations: Treatments: Re-evaluations: Discussion: <Joselyn Echols DO - Last Filed: 05/27/24 23:39> Lab Data Labs: Lab Results 05/27/24 05/27/24 Range/Units 15:10 18:28 WBC 15.0 H (4.5-11.0) X10^3/uL RBC 4.74 (4.0-5.2) X10^6/uL Hgb 14.1 (12.0-16.0) g/dL Hct 41.7 (36-46) % MCV 88.1 (80-100) fL MCH 29.8 (26-34) PG MCHC 33.9 (30-36) % RDW 13.4 (11.6-14.8) % Plt Count 439 H (150-400) X10^3/uL Neut % (Auto) 87.0 H (50-75) % Lymph % (Auto) 9.1 L (25-40) % [place] % (Auto) 3.3 (3-14) % Eos % (Auto) 0.2 L (2-4) % Baso % (Auto) 0.4 (0-2) % Neut # (Auto) 63890 H (0717-3826) /uL Lymph # (Auto) 1400 (1273-4266) /uL Dade # (Auto) 500 (0-900) /uL Eos # (Auto) 0 (0-450) /uL Baso # (Auto) 100 (0-100) /uL Sodium 134 L (137-145) mmol/L Potassium 3.6 (3.4-5.1) mmol/L Chloride 100 (98-107) mmol/L Carbon Dioxide 24 (22-32) mmol/L BUN 17 (7-17) mg/dL Creatinine 0.57 (0.52-1.04) mg/dL Estimated GFR > 60 (>60) mL/min BUN/Creatinine Ratio 29.8 H (6-22) Glucose 114 H (80-110) mg/dL Lactate 1.0 (0.7-2.1) mmol/L Calcium 9.3 (8.4-10.2) mg/dL Total Bilirubin 0.8 (0.2-1.3) mg/dL AST 29 (14-36) IU/L ALT 37 H (<35) IU/L Alkaline Phosphatase 105 (38-126) U/L Total Protein 7.5 (6.3-8.2) g/dL Albumin 4.6 (3.5-5.0) g/dL Globulin 2.9 (1.7-4.1) g/dL Albumin/Globulin Ratio 1.6 (1.0-2.8) Lipase 27 (23-300) U/L Urine Dip Bedside Urine Glucose Negative Bedside Urine Bilirubin - Negative Bedside Urine Ketone ++ 40 Urine Specific [place] 1.020 Bedside Urine Occult Blood - Negative Bedside Urine pH 6.0 Bedside Urine Protein - Negative Bedside Urine Urobilinogen - Negative Bedside Urine Nitrite - Negative Bedside Urine Leukocytes - Negative Esterase Point of care testing: Urine Dip Bedside Urine Glucose Negative Bedside Urine Bilirubin - Negative Bedside Urine Ketone ++ 40 Urine Specific [place] 1.020 Bedside Urine Occult Blood - Negative Bedside Urine pH 6.0 Bedside Urine Protein - Negative Bedside Urine Urobilinogen - Negative Bedside Urine Nitrite - Negative Bedside Urine Leukocytes - Negative Esterase Imaging Data CT scan - abdomen/pelvis: Radiologist's Impression: CT report acute cholecystitis without evidence of choledocholithiasis or pancreatitis. Recommend surgical consultation MDM Narrative Medical decision making narrative: CC: Acute onset significant abdominal pain 2:00 a.m. Complicating co-morbidities: Face lift 2 weeks ago no medications, significant constipation earlier this week secondary to narcotic use postop Data collected from: patient, partner Differential considered: Bowel perforation, intra-abdominal abscess, constipation, bowel obstruction, patient has had appendectomy Exam documented above, pertinent findings include: Patient appears uncomfortable but is otherwise appropriate. Guarding in the right lower quadrant Lab Test results independently reviewed as above. Pertinent findings: CBC shows leukocytosis at 15,000 with 87% leukocytes, no anemia Chemistry so moderately low-sodium 134. Remainder of labs reassuring Lipase is unremarkable Independently reviewed EKG: EKG shows sinus rhythm at a rate of 62 with no acute ischemia Imaging studies independently reviewed: CT scanner is currently down. With shared decision-making we opted to proceed with an acute abdomen series to rule out bowel perforation and obstruction. X- rays do show no free air no obstruction patient is still significantly tender with leukocytosis and CT scan is indicated. Consultations: Treatments: Zosyn Re-evaluations: Discussion: Patient signed out to me by Dr. Smith awaiting for her to return from CT. She does have leukocytosis. Awoke suddenly with abdominal pain and vomiting reports she has had sweats and chills all day. Normal lactic acid no evidence of mesenteric ischemia. I have reexamined her when she was returned abdomen is soft nontender pain not out of proportion. 2200Dr. [facility] updated on symptoms and test results. In Ed to see and evaluate patient. He and patient agreed for observation. Patient has acalculous cholecystitis needs further workup Discharge Plan Departure Patient Disposition: Admitted as Observation Clinical Impression: Cholecystitis Admit Date/Time: 05/27/24 22:20 Admit Provider: Charanjit Cavazos ED Sign-out <Bernadine Bhatia MD - Last Filed: 05/28/24 08:10> Cosign ED Attending Cosignature Attestation: I was immediately available in the department for consultation throughout this patient's visit. Bernadine Bhatia MD
--- NOTE | 2024-05-27 15:15 | DI.RAD.S_ITS ---
PROCEDURE: XR ACUTE ABDOMEN SERIES INDICATIONS: acute abdominal pain 2am TECHNIQUE: One view chest and two views of the abdomen were acquired. COMPARISON: [facility], , ABDOMEN ACUTE SERIES, 05/06/2016, 5:36. FINDINGS: Surgical changes and devices: None. Chest: Lungs are clear. Heart size is normal. No pleural effusions. No pneumoperitoneum. Abdomen: Bowel gas pattern is nonspecific. Scattered stool. No suspicious calcifications. Visualized solid organ contours appear normal. Bones: No suspicious bony lesions. IMPRESSION: Nonspecific gas pattern with mild scattered stool. Dictated by: Tejal Martinez M.D. on 05/27/2024 at 15:50 Approved by: Tejal Martinez M.D. on 05/27/2024 at 15:50
--- NOTE | 2024-05-27 15:21 | EKG_ITS ---
[address] [address] Test Date: 2024-05-27 Pat Name: Lidia Mancera Department: [facility] Room: Gender: Female Equipment Associate: VISHNU : 1955 Requested By: Order Number: [id number] Reading MD: Marc Nick Measurements Intervals [place] Rate: 62 P: 53 CA: 150 QRS: 37 QRSD: 94 T: 50 QT: 430 QTc: 436 Interpretive Statements Normal sinus rhythm Electronically Signed On 05-27-2024 18:31:56 PDT by Marc Nick
[2024-05-27 15:26] LABS: Add Manual Diff / Slide Review NO; Basophils Absolute Auto 100 /uL (0-100); Basophils Percent Auto 0.4 % (0-2); Eosinophils Absolute Auto 0 /uL (0-450); Eosinophils Percent Auto 0.2 % (2-4); Hematocrit 41.7 % (36-46); Hemoglobin 14.1 g/dL (12.0-16.0); Lymphocytes Absolute Auto 1400 /uL (1100-4500); Lymphocytes Percent Auto 9.1 % (25-40); Mean Corpuscular HGB Conc 33.9 % (30-36); Mean Corpuscular Hemoglobin 29.8 PG (26-34); Mean Corpuscular Volume 88.1 fL (80-100); Monocytes Absolute Auto 500 /uL (0-900); Monocytes Percent Auto 3.3 % (3-14); Neutrophils Absolute Auto 13000 /uL (1500-7000); Platelet Count 439 X10^3/uL (150-400); Red Blood Cell Count 4.74 X10^6/uL (4.0-5.2); Red Cell Distribution Width 13.4 % (11.6-14.8)
[2024-05-27] MEDS: KETOROLAC 30 MG/ML VIAL 15 MG IV (15:30)
[2024-05-27] MEDS: ONDANSETRON 4 MG/2 ML INJ IV ×2 (15:31→19:05)
[2024-05-27] MEDS: SODIUM CHLORIDE 0.9% 1,000 ML 1000 ML IV (15:31)
[2024-05-27 15:35] LABS: Alanine Aminotransferase 37 IU/L (<35); Albumin 4.6 g/dL (3.5-5.0); Albumin Globulin Ratio 1.6 (1.0-2.8); Alkaline Phosphatase 105 U/L (38-126); Aspartate Aminotransferase 29 IU/L (14-36); BUN Creatinine Ratio 29.8 (6-22); Bilirubin Total 0.8 mg/dL (0.2-1.3); Blood Urea Nitrogen 17 mg/dL (7-17); Calcium 9.3 mg/dL (8.4-10.2); Carbon Dioxide 24 mmol/L (22-32); Chloride 100 mmol/L (98-107); Estimated Glomerular Filt Rate > 60 mL/min (>60); Globulin 2.9 g/dL (1.7-4.1); Glucose 114 mg/dL (80-110); HEMOLYSIS < 15 (0-50); Lipase 27 U/L (23-300); Potassium 3.6 mmol/L (3.4-5.1); Sodium 134 mmol/L (137-145); Total Protein 7.5 g/dL (6.3-8.2)
[2024-05-27] MEDS: HYDROMORPHONE 0.5 MG INJ IV (19:06)
--- NOTE | 2024-05-27 20:19 | PC.NURSE ---
1914- patient left S to [facility] for CT scan and will return, patient left the department in stable condition
--- NOTE | 2024-05-27 21:12 | PC.NURSE ---
Pt returned from ct at [facility]. settled back into room.
--- NOTE | 2024-05-27 21:25 | PC.NURSE ---
2110-Patient returned from [facility] from her CT scan, patient reports her pain is well controlled and she is feeling good at this time
--- NOTE | 2024-05-27 22:22 | PM.HP.IH.1 ---
History of Present Illness History of Present Illness Date Patient Seen: 05/27/24 Time Patient Seen: 22:22 Chief complaint: had sx 2 weeks ago,extreme px, chills Narrative: 68-year-old white female underwent a neck lift 2 weeks ago and took 3 days of antibiotics preprocedure and 3 days of hydrocodone postprocedure and had some issues with constipation which caused some mild abdominal pain. She had worsening abdominal pain that started at 2:00 a.m. early this morning, failed to improve and she presented the ER this afternoon. CT scanner was down so she was sent to [facility] for a CT scan which did not show gallstones but was suspicious for some gallbladder wall thickening or pericholecystic fluid. On my independent review of the CT scan she does have a significant stool burden in the right colon. Patient stated that she had dark stool that appeared maroon. She is status post appendectomy. She is due for colonoscopy next month [facility] Medical History Hand laceration Surgical History S/P appendectomy Social History household members: spouse Smoking Status: Never smoker Meds Home Medications and Allergies Home Medications Medication Instructions Recorded Confirmed Type phenazopyridine 200 mg tablet 200 mg PO TID PRN pain 6 doses #10 09/01/21 09/12/21 Rx (Pyridium) tabs sodium,potassium,mag sulfates 17.5 See Rx Instructions PO .COMPLEX 04/11/24 Rx gram-3.13 gram-1.6 gram oral soln #354 mL (Suprep Bowel Prep Kit) Allergies Allergy/AdvReac Type Severity Reaction Status Date / Time No Known Drug Allergies Allergy Verified 09/12/21 09:32 Review of Systems Review of Systems ROS: Yes All systems reviewed with the patient and are negative except as otherwise documented Exam Vital Signs (past 8 hours): - 05/27/24 14:51 05/27/24 15:08 05/27/24 15:24 Temperature 98.6 F Pulse Rate 73 67 Respiratory Rate 20 Blood Pressure 186/89 H 198/103 H Pulse Oximetry 99 97 Oxygen Delivery Method Room Air 05/27/24 15:24 05/27/24 15:30 05/27/24 15:30 Temperature Pulse Rate 65 62 Respiratory Rate Blood Pressure 183/97 H Pulse Oximetry 99 98 Oxygen Delivery Method 05/27/24 16:00 05/27/24 16:00 05/27/24 16:30 Temperature Pulse Rate 62 62 Respiratory Rate Blood Pressure 192/77 H Pulse Oximetry 97 93 Oxygen Delivery Method 05/27/24 16:31 05/27/24 16:31 05/27/24 17:00 Temperature Pulse Rate 63 Respiratory Rate Blood Pressure 143/63 H 162/70 H Pulse Oximetry 95 Oxygen Delivery Method 05/27/24 17:00 05/27/24 17:33 05/27/24 17:34 Temperature Pulse Rate 62 63 Respiratory Rate Blood Pressure 188/77 H Pulse Oximetry 96 94 Oxygen Delivery Method 05/27/24 17:34 05/27/24 18:00 05/27/24 18:01 Temperature Pulse Rate 62 62 Respiratory Rate Blood Pressure 187/86 H Pulse Oximetry 97 93 Oxygen Delivery Method 05/27/24 18:01 05/27/24 18:30 05/27/24 18:31 Temperature Pulse Rate 62 71 Respiratory Rate Blood Pressure 188/83 H Pulse Oximetry 94 97 Oxygen Delivery Method 05/27/24 18:31 05/27/24 19:00 05/27/24 19:01 Temperature Pulse Rate 62 71 69 Respiratory Rate Blood Pressure Pulse Oximetry 98 98 97 Oxygen Delivery Method Room Air 05/27/24 19:01 05/27/24 21:13 05/27/24 21:14 Temperature Pulse Rate 66 Respiratory Rate Blood Pressure 140/66 Pulse Oximetry 96 95 Oxygen Delivery Method Room Air 05/27/24 21:14 05/27/24 21:30 05/27/24 21:30 Temperature Pulse Rate 66 Respiratory Rate Blood Pressure 157/71 H 163/73 H Pulse Oximetry 91 Oxygen Delivery Method 05/27/24 22:00 05/27/24 22:01 05/27/24 22:01 Temperature Pulse Rate 63 64 Respiratory Rate 18 Blood Pressure 153/67 H Pulse Oximetry 97 96 Oxygen Delivery Method Oxygen Delivery Method Room Air Narrative Exam Narrative: Gen: NAD, sitting comfortably in bed, appears well HEENT: Sclera are anicteric, head is normocephalic and atraumatic, trachea is midline. CV: RRR, no JVD Resp: clear to auscultation bilaterally, equal chest wall movement bilaterally Abd: soft, negative Ortiz's, mild epigastric tenderness, normoactive bowel sounds Ext: no edema, full range of motion Neuro: Cranial nerves II-XII grossly intact, no focal deficits Skin: No erythema or ecchymosis Objective Imaging CT scan - abdomen: My impression: CT scan of the abdomen independently reviewed by me shows a distended gallbladder without obvious stones, borderline wall thickening. Significant stool burden in the right colon. Evidence of laparoscopic appendectomy. Labs 05/27/24 15:10 05/27/24 15:10 Labs: Laboratory Results - last 24 hr 05/27/24 05/27/24 15:10 18:28 WBC 15.0 H RBC 4.74 Hgb 14.1 Hct 41.7 MCV 88.1 MCH 29.8 MCHC 33.9 RDW 13.4 Plt Count 439 H Neut % (Auto) 87.0 H Lymph % (Auto) 9.1 L Coke % (Auto) 3.3 Eos % (Auto) 0.2 L Baso % (Auto) 0.4 Neut # (Auto) 69833 H Lymph # (Auto) 1400 Coke # (Auto) 500 Eos # (Auto) 0 Baso # (Auto) 100 Sodium 134 L Potassium 3.6 Chloride 100 Carbon Dioxide 24 BUN 17 Creatinine 0.57 Estimated GFR > 60 BUN/Creatinine Ratio 29.8 H Glucose 114 H Lactate 1.0 Calcium 9.3 Total Bilirubin 0.8 AST 29 ALT 37 H Alkaline Phosphatase 105 Total Protein 7.5 Albumin 4.6 Globulin 2.9 Albumin/Globulin Ratio 1.6 Lipase 27 Assessment & Plan Assessment and plan (1) Cholecystitis: Status: Acute (2) Melena: Status: Acute Assessment & Plan narrative: We will order a HIDA to evaluate for acalculous cholecystitis. Her progression of symptoms is atypical for cholecystitis. She did not have oral contrast for her CT scan. Time-Based Coding :: [TOTAL MINUTES] spent with patient and on the chart (including review of chart, obtaining history, exam, reviewing outside data, placing orders, documenting exam and treatment plan, and counseling patient) on [DATE]. PROFEE Teaching Aide Document charge(s): Yes Charge Codes Initial inpatient/observation care: [id number]
--- NOTE | 2024-05-27 22:33 | DI.NM.S_ITS ---
PROCEDURE: NM HIDA NO EJECTION FRACTION RADIOPHARMACEUTICAL: 5.5 mCi Tc-99m mebrofenin IV. INDICATIONS: possible acalc cholecystitis TECHNIQUE: Following intravenous administration of Tc-99m mebrofenin, sequential anterior abdominal images were obtained through at least 60 minutes. COMPARISON: [facility], CT, CT ABDOMEN PELVIS WITH CONTRAST, 05/27/2024, 20:30. FINDINGS: There is normal tracer uptake and excretion by the liver. There is normal visualization of intrahepatic ducts, common bile duct . Gallbladder not visualized. There is normal tracer excretion into duodenum. Contrast within the stomach. IMPRESSION: Gallbladder not visualized, consistent with acute cholecystitis. Biliary reflux into the stomach. Dictated by: Ray Mukherjee M.D. on 05/29/2024 at 9:18 Approved by: Ray Mukherjee M.D. on 05/29/2024 at 9:33
--- NOTE | 2024-05-27 22:34 | PC.NURSE ---
Lab in room drawing the second blood culture
--- NOTE | 2024-05-27 23:02 | PC.NURSE ---
Keo sent to the floor with patient
[2024-05-27] MEDS: PIPERACILLIN/TAZO 4.5 GM in SODIUM CHLORIDE 0.9% 100 ML IV (23:36)
[2024-05-28] VITALS (9 sets, daily range): BP systolic 107–156; BP diastolic 58–88; PULSE 63–76; RESP 15–19; TEMP 36.1–36.7; O2SAT 95–98
[2024-05-28] MEDS: HEPARIN 5,000 UNIT/ML VIAL 5000 UNIT SUBCUT ×3 (00:14→20:04)
[2024-05-28] MEDS: IBUPROFEN 400 MG TABLET PO (00:15)
[2024-05-28] MEDS: ACETAMINOPHEN 325 MG TABLET 650 MG PO (00:15)
[2024-05-28] MEDS: MAG HYDROX/ALUM/SIMETH 30 ML UDC PO ×3 (00:16→20:03)
[2024-05-28] MEDS: SODIUM CHLORIDE 0.9% 1,000 ML 100 ML IV ×3 (00:20→20:08)
[2024-05-28] MEDS: PIPERACILLIN/TAZO 3.375 GM in SODIUM CHLORIDE 0.9% 100 ML IV ×3 (04:07→19:51)
[2024-05-28 05:11] LABS: Add Manual Diff / Slide Review NO; Basophils Absolute Auto 0 /uL (0-100); Basophils Percent Auto 0.4 % (0-2); Eosinophils Absolute Auto 100 /uL (0-450); Eosinophils Percent Auto 1.7 % (2-4); Hemoglobin 12.3 g/dL (12.0-16.0); Lymphocytes Absolute Auto 1300 /uL (1100-4500); Lymphocytes Percent Auto 16.6 % (25-40); Mean Corpuscular Hemoglobin 30.2 PG (26-34); Mean Corpuscular Volume 88.8 fL (80-100); Monocytes Absolute Auto 600 /uL (0-900); Monocytes Percent Auto 7.2 % (3-14); Neutrophils Absolute Auto 5800 /uL (1500-7000); Neutrophils Percent Auto 74.1 % (50-75); Platelet Count 349 X10^3/uL (150-400); Red Blood Cell Count 4.06 X10^6/uL (4.0-5.2); Red Cell Distribution Width 13.8 % (11.6-14.8); White Blood Cell Count 7.8 X10^3/uL (4.5-11.0)
[2024-05-28 05:23] LABS: Alanine Aminotransferase 36 IU/L (<35); Albumin 3.4 g/dL (3.5-5.0); Albumin Globulin Ratio 1.4 (1.0-2.8); Alkaline Phosphatase 80 U/L (38-126); Aspartate Aminotransferase 41 IU/L (14-36); BUN Creatinine Ratio 24.2 (6-22); Bilirubin Total 0.9 mg/dL (0.2-1.3); Blood Urea Nitrogen 16 mg/dL (7-17); Calcium 8.5 mg/dL (8.4-10.2); Carbon Dioxide 25 mmol/L (22-32); Chloride 106 mmol/L (98-107); Estimated Glomerular Filt Rate > 60 mL/min (>60); Globulin 2.4 g/dL (1.7-4.1); Glucose 117 mg/dL (80-110); HEMOLYSIS < 15 (0-50); Potassium 3.2 mmol/L (3.4-5.1); Sodium 137 mmol/L (137-145); Total Protein 5.8 g/dL (6.3-8.2)
[2024-05-28] MEDS: PANTOPRAZOLE DR 20 MG TABLET PO (06:24)
[2024-05-28] MEDS: polyethylene glycoL 3350 17 GM POWD.PACK PO ×2 (09:15→20:03)
[2024-05-28] MEDS: POTASSIUM CHLORIDE 20 MEQ TAB 40 MEQ PO (09:15)
[2024-05-28] MEDS: DOCUSATE 100 MG CAPSULE PO ×2 (09:15→20:03)
--- NOTE | 2024-05-28 11:34 | PM.PN.IH.1 ---
Subjective Subjective Date Patient Seen: 05/28/24 Time Patient Seen: 11:34 Interval history: HIDA scan would not be able to be performed until Wednesday due to staffing in the radiology department. Patient's white blood cell count has improved, but she had coffee with cream this morning which gave her more nausea. Still feels constipated. Milk of Mag, MiraLax, Colace all ordered. No vomiting. Exam Vital Signs (past 8 hours): - 05/28/24 04:00 05/28/24 07:00 05/28/24 08:00 Temperature 98.0 F 97.1 F L Pulse Rate 76 63 Respiratory Rate 19 16 Blood Pressure 146/88 H 107/58 L Pulse Oximetry 96 95 95 Oxygen Delivery Method Room Air Oxygen Flow Rate 0 0 0 Oxygen Delivery Method Room Air Oxygen Flow Rate 0 Narrative Exam Narrative: Gen: NAD, lying comfortably in bed, appears well HEENT: Sclera are anicteric, head is normocephalic and atraumatic, trachea is midline. CV: RRR, no JVD Resp: clear to auscultation bilaterally, equal chest wall movement bilaterally Abd: soft, nontender, normoactive bowel sounds Ext: no edema, full range of motion Neuro: Cranial nerves II-XII grossly intact, no focal deficits Skin: No erythema or ecchymosis Objective Labs 05/28/24 04:20 05/28/24 04:20 Labs: Laboratory Results - last 24 hr 05/27/24 05/27/24 05/28/24 15:10 18:28 04:20 WBC 15.0 H 7.8 RBC 4.74 4.06 Hgb 14.1 12.3 Hct 41.7 36.0 MCV 88.1 88.8 MCH 29.8 30.2 MCHC 33.9 34.0 RDW 13.4 13.8 Plt Count 439 H 349 Neut % (Auto) 87.0 H 74.1 Lymph % (Auto) 9.1 L 16.6 L Anderson % (Auto) 3.3 7.2 Eos % (Auto) 0.2 L 1.7 L Baso % (Auto) 0.4 0.4 Neut # (Auto) 11360 H 5800 Lymph # (Auto) 1400 1300 Anderson # (Auto) 500 600 Eos # (Auto) 0 100 Baso # (Auto) 100 0 Sodium 134 L 137 Potassium 3.6 3.2 L Chloride 100 106 Carbon Dioxide 24 25 BUN 17 16 Creatinine 0.57 0.66 Estimated GFR > 60 > 60 BUN/Creatinine Ratio 29.8 H 24.2 H Glucose 114 H 117 H Lactate 1.0 Calcium 9.3 8.5 Total Bilirubin 0.8 0.9 AST 29 41 H ALT 37 H 36 H Alkaline Phosphatase 105 80 Total Protein 7.5 5.8 L Albumin 4.6 3.4 L Globulin 2.9 2.4 Albumin/Globulin Ratio 1.6 1.4 Lipase 27 PFSH Medical History Hand laceration Surgical History S/P appendectomy Social History household members: spouse Smoking Status: Never smoker Assessment & Plan Assessment and plan (1) Cholecystitis: Status: Acute Assessment & Plan narrative: Awaiting HIDA scan to exclude acalculous cholecystitis versus pain from constipation. Her leukocytosis has improved with Zosyn it is now normal. Her LFTs were borderline elevated today, ALT and AST are a little better and a little worse yesterday. Bilirubin remains normal and alk-phos remains normal. If HIDA is positive tomorrow would anticipate adding her on for laparoscopic cholecystectomy tomorrow. Time-Based Coding :: [TOTAL MINUTES] spent with patient and on the chart (including review of chart, obtaining history, exam, reviewing outside data, placing orders, documenting exam and treatment plan, and counseling patient) on [DATE]. PROFEE Business Management Analyst Document charge(s): Yes Charge Codes Subsequent inpatient/observation care: [id number]
[2024-05-28] MEDS: ONDANSETRON 4 MG/2 ML INJ IV (12:03)
--- NOTE | 2024-05-28 15:00 | CM.DANOTE ---
Initial DCP Assessment Note Pt is a 68 yo female, resident of [facility], recent face lift now with severe constipation from narcotic use. general surgery consulted. HIDA scan ordered for Wednesday- acute kelsie needing lap kelsie vs pain from constipation. OR likely Wednesday of lap kelsie needed. PCP: Mark Jimenez Payer: LIA/Elier Reviewed chart,patient lives independently with sp in [facility] and is anticipated to return without needs from this CM team. Patient appears to be at her functional and cognitive baseline; other than complaints of abd pain limiting mobility. No barriers identified at this time to patient's safe discharge home w/family to assist; close outpatient f/u recommended. CM team will plan to follow clinical course closely in case any DC needs or concerns arise. TOOTIE Dunn Discharge Planning/Care Management CM Discharge Assessment Start: 05/28/24 14:58 Freq: Status: Active Protocol: Document 05/28/24 14:58 STEVE (Rec: 05/28/24 15:00 STEVE [id number]) Discharge Planning Assessment Assigned Textile Designer TOOTIE Gambino DPOA/Assigned Designee Name Wolgfang Mancera (spouse) Contact Information [phone] Advance Directives? Yes Advance Directives on File No History Provided By Patient,Medical Record Prior Living Arrangements House Household Members spouse Type of transporation used prior to Drives own vehicle admit Independent with ADL's Yes Is patient alert and oriented? Yes Barriers to Discharge No Discharge Plan Home Transportation Arrangement Spouse Referrals Initiated None needed
[2024-05-29] VITALS (19 sets, daily range): BP systolic 123–171; BP diastolic 63–95; PULSE 59–77; RESP 14–24; TEMP 36.1–36.8; O2SAT 91–99; BMI 28.1
--- NOTE | 2024-05-29 | DI.RAD.S_ITS ---
PROCEDURE: XR CHOLANGIOGRAM OPERATIVE INDICATIONS: OR COMPARISON: None. FINDINGS: Biliary ducts: The surgeon injected contrast into the biliary ducts after cannulation of the cystic duct stump. Visualized intra- and extrahepatic bile ducts are normal in caliber, without strictures. No intraluminal filling defects to suggest retained ductal stones or sludge. No evidence for iatrogenic ductal injury. Duodenum: Contrast flows promptly through the sphincter of Oddi into the duodenum, which appears normal in caliber. IMPRESSION: Normal intraoperative cholangiogram. Dictated by: Anushka Piña M.D. on 05/29/2024 at 17:02 Approved by: Anushka Piña M.D. on 05/29/2024 at 17:02
--- NOTE | 2024-05-29 | PATH_ITS ---
[facility] Accession Number: [id number] No. of containers..01 Tissue . 01 Material submitted: . gallbladder - GALLBLADDER . 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 Negative for dysplasia and malignancy. MRV 05/31/2024 1532 Local . 01 Electronically signed: . Noé Banks MD, Pathologist NPI- [id number] . 01 Gross description: . Received in formalin with two patient identifiers and gallbladder, is a disrupted gallbladder, 9.3 x 3.6 x 3.1 cm, with a full thickness defect on the serosal surface 1.4 cm in greatest dimension. The cystic duct margin is inked blue, and no pericystic lymph node is identified. The lumen contains numerous green faceted calculi up to 0.6 cm in greatest dimension not grossly obstructing the cystic duct. A solidified fragment of white material with embedded calculi measures 4.2 x 2.7 x 2.4 cm. No other bile is identified. The mucosa is violaceous and velvety with yellow areas of discoloration and no polyps or lesions identified. The jovel average 0.3 cm thick, and employee representative sections to include the cystic duct margin and full thickness sections with area of defect and solidified massey material are submitted in A1. ([id number]) /MRV 05/30/20242128 Local . 01 Pathologist provided ICD-10: K81.9, K92.1, K80.10 . 01 CPT . 507035 Specimen Comment: A courtesy copy of this report has been sent to [facility] Pathology Performed at: [address] [address], [place], [place] [id number] MD Rakan Hunt MD Phone: [phone]
[2024-05-29] MEDS: PIPERACILLIN/TAZO 3.375 GM in SODIUM CHLORIDE 0.9% 100 ML IV ×3 (03:20→20:57)
[2024-05-29] MEDS: SODIUM CHLORIDE 0.9% 1,000 ML 100 ML IV ×2 (05:49→18:11)
[2024-05-29 06:03] LABS: Add Manual Diff / Slide Review NO; Basophils Absolute Auto 0 /uL (0-100); Basophils Percent Auto 0.7 % (0-2); Eosinophils Absolute Auto 200 /uL (0-450); Eosinophils Percent Auto 4.5 % (2-4); Hematocrit 33.2 % (36-46); Hemoglobin 11.5 g/dL (12.0-16.0); Lymphocytes Absolute Auto 1500 /uL (1100-4500); Lymphocytes Percent Auto 31.8 % (25-40); Mean Corpuscular HGB Conc 34.6 % (30-36); Mean Corpuscular Hemoglobin 30.7 PG (26-34); Mean Corpuscular Volume 88.7 fL (80-100); Monocytes Absolute Auto 300 /uL (0-900); Monocytes Percent Auto 6.5 % (3-14); Neutrophils Absolute Auto 2700 /uL (1500-7000); Neutrophils Percent Auto 56.5 % (50-75); Platelet Count 288 X10^3/uL (150-400); Red Blood Cell Count 3.75 X10^6/uL (4.0-5.2); Red Cell Distribution Width 13.7 % (11.6-14.8); White Blood Cell Count 4.8 X10^3/uL (4.5-11.0)
[2024-05-29 06:13] LABS: Alanine Aminotransferase 62 IU/L (<35); Albumin 3.3 g/dL (3.5-5.0); Albumin Globulin Ratio 1.3 (1.0-2.8); Alkaline Phosphatase 94 U/L (38-126); Aspartate Aminotransferase 50 IU/L (14-36); BUN Creatinine Ratio 17.4 (6-22); Bilirubin Total 0.7 mg/dL (0.2-1.3); Blood Urea Nitrogen 12 mg/dL (7-17); Calcium 8.5 mg/dL (8.4-10.2); Carbon Dioxide 25 mmol/L (22-32); Chloride 110 mmol/L (98-107); Estimated Glomerular Filt Rate > 60 mL/min (>60); Globulin 2.5 g/dL (1.7-4.1); Glucose 95 mg/dL (80-110); HEMOLYSIS < 15 (0-50); Potassium 3.7 mmol/L (3.4-5.1); Sodium 138 mmol/L (137-145); Total Protein 5.8 g/dL (6.3-8.2)
--- NOTE | 2024-05-29 14:49 | CM.DPNOTE ---
DCP NOte SHELTERED WORKSHOP EXECUTIVE DIRECTOR reviewed EMR Per nursing staff, HIDA scan positive. in OR now for lap kelsie. No barriers identified at this time to patient's safe discharge home w/family to assist; close outpatient f/u recommended. CM team will plan to follow clinical course closely in case any DC needs or concerns arise. Yvonne Suarez, TOOTIE
[2024-05-29] MEDS: LACTATED RINGERS 1,000 ML 100 ML IV (14:54)
--- NOTE | 2024-05-29 15:26 | PM.PREOP ---
Pre-operative Note Interval Note History & Physical reviewed/Exam performed by Physician: Yes Changes to H&P: No
--- NOTE | 2024-05-29 15:54 | SUR.OPER ---
Supine on padded OR bed, head on pillow, safety belt at thigh, left arm padded and tucked at side. Right arm secured on padded arm board <90 degrees abduction. Legs uncrossed. Padded footboard in place. Tape over blanket to secure lower legs.
[2024-05-29] MEDS: iopamidoL 30 ML VIAL INJ (16:03)
[2024-05-29] MEDS: BUPIVACAINE 0.5% W/ EPI (PF) 30 ML VIAL INJ (16:04)
--- NOTE | 2024-05-29 16:41 | PM.OP.1 ---
Operative Date/Time/Diagnoses Date of procedure: 05/29/24 Time of procedure: 16:41 Pre-op diagnosis: Acute cholecystitis Post-op diagnosis: same (Hydrops of the gallbladder with small stones, significant edema and likely mucosal necrosis) Procedure & Clinicians Procedure: Laparoscopic cholecystectomy with cholangiography Same procedure as scheduled: Yes Indications: Acute cholecystitis Surgeon: Charanjit Cavazos Click Yes if Unassisted: Yes Anesthesia Type: General Operative Notes Findings: Dilated common duct without any obvious filling defects Closure Type: primary Specimen(s): other (Gallbladder and contents) Estimated Blood Loss (mL): 15 Blood products transfused: none Procedure in detail: Consent was obtained. Patient was brought into the operating room suite. Patient was placed in the supine position with the arms out. General anesthesia was induced. Time-out was performed. The abdomen was prepped and draped in the usual fashion. Total of 30 mL of 0.5% Marcaine were infiltrated in all trocar sites. 5 mm optical trocar was placed in the left upper quadrant. Pneumoperitoneum was achieved. The abdomen was inspected. Abnormalities noted included adhesions to the gallbladder. 11 mm trocar placed in the umbilicus. Two additional 5 mm trocars were placed in the right upper quadrant. The gallbladder was grasped, retracted laterally and cephalad. The gallbladder was tense, 5 mm suction tip was inserted in the gallbladder suctioned free. There were some small stones that came through the suctioned. The medial and lateral attachments of the gallbladder were opened revealing a critical view of the single cystic duct and single cystic artery. The artery was doubly clipped and divided. The duct was clipped at the junction of the infundibulum. A cystic ductotomy was made through which a cholangiogram was performed. Cholangiogram showed prompt emptying into the duodenal with bilateral intrahepatic ductal filling and no evidence of strictures or stones. Thus completed the cholangiography and the catheter was removed. Three clips were then applied to the cystic duct stump. Bovie electrocautery was used to remove the gallbladder from the liver bed. Hemostasis was achieved. The gallbladder was placed in an endo-pouch and brought out through the umbilical trocar. The umbilical trocar was closed with an 0 Vicryl on a Ambrocio-Kevin suture Passer. Pneumoperitoneum was relieved. Skin was closed with 4-0 Monocryl and Dermabond. Patient tolerated procedure well was transferred to PACU in stable condition for anticipated same-day discharge. Complications: none Post-operative Condition: stable Disposition: PACU Plan for aftercare: Home with
--- NOTE | 2024-05-29 16:43 | PM.DS.IH.1 ---
History of Present Illness History of Present Illness Date Patient Seen: 05/29/24 Time Patient Seen: 16:43 Chief complaint: had sx 2 weeks ago,extreme px, chills Narrative: 68-year-old white female underwent a neck lift 2 weeks ago and took 3 days of antibiotics preprocedure and 3 days of hydrocodone postprocedure and had some issues with constipation which caused some mild abdominal pain. She had worsening abdominal pain that started at 2:00 a.m. early this morning, failed to improve and she presented the ER this afternoon. CT scanner was down so she was sent to [facility] for a CT scan which did not show gallstones but was suspicious for some gallbladder wall thickening or pericholecystic fluid. On my independent review of the CT scan she does have a significant stool burden in the right colon. Patient stated that she had dark stool that appeared maroon. She is status post appendectomy. She is due for colonoscopy next month Discharge Providers Provider Date of admission: 05/29/24 14:19 Discharge Date: 05/29/24 Primary care physician: JOAN Perez Discharge provider: Charanjit Cavazos MD Summary Hospital Course Discharge Diagnosis: Acute cholecystitis Hospital Course: Patient presented to the ER after two weeks of abdominal pain following lower face lift. She initially attributed the lower abdominal pain to constipation from the narcotics of the time of the face lift, but it continued to get worse. Patient has significant leukocytosis. CT scan showed a distended gallbladder without obvious stones. Patient was admitted for IV antibiotics and her leukocytosis improved, but we will trial of liquids was met with nausea. HIDA scan was ordered and performed this morning, showed nonfilling of the gallbladder. Patient agreed to laparoscopic cholecystectomy for presumed acute cholecystitis. Laparoscopic cholecystectomy in fact did show acute cholecystitis with gallstones noted in the gallbladder. Cholangiogram was unremarkable. Patient tolerated procedure well was appropriate for discharge after surgery. Status at Discharge Cognitive/behavioral status at discharge: oriented Functional status at discharge: independent ambulation Overall status at discharge: patient is back to baseline Time Spent with Patient Time spent: Less than 30 minutes Exam Vital Signs (past 8 hours): - 05/29/24 11:00 05/29/24 12:00 05/29/24 14:23 Temperature 97.3 F L 97.6 F Pulse Rate 62 67 Respiratory Rate 15 16 Blood Pressure 141/68 H 157/76 H Pulse Oximetry 98 97 97 Oxygen Delivery Method Room Air Room Air Oxygen Flow Rate 0 Oxygen Delivery Method Room Air Oxygen Flow Rate 0 Objective Labs 05/29/24 05:00 05/29/24 05:00 Labs: Laboratory Results - last 24 hr 05/29/24 05:00 WBC 4.8 RBC 3.75 L Hgb 11.5 L Hct 33.2 L MCV 88.7 MCH 30.7 MCHC 34.6 RDW 13.7 Plt Count 288 Neut % (Auto) 56.5 Lymph % (Auto) 31.8 Pepin % (Auto) 6.5 Eos % (Auto) 4.5 H Baso % (Auto) 0.7 Neut # (Auto) 2700 Lymph # (Auto) 1500 Pepin # (Auto) 300 Eos # (Auto) 200 Baso # (Auto) 0 Sodium 138 Potassium 3.7 Chloride 110 H Carbon Dioxide 25 BUN 12 Creatinine 0.69 Estimated GFR > 60 BUN/Creatinine Ratio 17.4 Glucose 95 Calcium 8.5 Total Bilirubin 0.7 AST 50 H ALT 62 H Alkaline Phosphatase 94 Total Protein 5.8 L Albumin 3.3 L Globulin 2.5 Albumin/Globulin Ratio 1.3 PFSH Medical History Hand laceration Surgical History S/P appendectomy Social History household members: spouse Smoking Status: Never smoker Discharge Assessment & Plan Assessment and Plan Assessment: Acute cholecystitis Plan of Treatment: Underwent laparoscopic cholecystectomy. Discharge Plan Discharge Plan Patient Disposition: Home Discharge orders & Medications Prescriptions: New oxycodone 5 mg tablet 5 mg PO Q8H PRN (Reason: pain, severe) Qty: 7 0RF tizanidine 2 mg tablet 2 mg PO Q8H PRN (Reason: muscle spasticity or pain) Qty: 90 0RF Continued acetaminophen 650 mg tablet 650 mg PO PRN PRN (Reason: Pain, Mild) Follow up/Referrals: Fernando Eason ARNP [Primary Care Provider] - Diet/Activity/Treatments Diet: Regular Skin/Wound/Dressing Care Report to your healthcare provider any signs of infection, such as:: chills, fever, night sweats, increased pain, unusual drainage and unusual redness Visit Report/Discharge Packet Instructions: DI for Laparoscopic Cholecystectomy Stand Alone Forms: Patient Portal/API, Stroke Signs & Symptoms Discharge Data Primary Care Provider: Fernando Eason PROFEBENEZER Charge Codes Discharge inpatient/observation: [id number] (78108 included in global for surgery)
[2024-05-29] MEDS: ACETAMINOPHEN 325 MG TABLET 650 MG PO (17:50)
[2024-05-29] MEDS: OXYCODONE IR 5 MG TABLET PO ×2 (18:13→20:58)
[2024-05-29] MEDS: ONDANSETRON 4 MG/2 ML INJ IV (18:29)
[2024-05-29] MEDS: HEPARIN 5,000 UNIT/ML VIAL 5000 UNIT SUBCUT (20:54)
[2024-05-29] MEDS: SCOPOLAMINE 1 PATCH TOP (20:57)
[2024-05-29] MEDS: IBUPROFEN 400 MG TABLET PO (20:58)
[2024-05-29] MEDS: polyethylene glycoL 3350 17 GM POWD.PACK PO (20:59)
[2024-05-29] MEDS: DOCUSATE 100 MG CAPSULE PO (20:59)
[2024-05-29] MEDS: MAG HYDROX/ALUM/SIMETH 30 ML UDC PO (20:59)
[2024-05-30] MEDS: IBUPROFEN 400 MG TABLET PO ×2 (00:32→06:24)
[2024-05-30] MEDS: ACETAMINOPHEN 325 MG TABLET 650 MG PO ×2 (00:32→06:23)
[2024-05-30 01:00] VITALS: BP 132/59; PULSE 68; RESP 20; TEMP 36.6; O2SAT 92
[2024-05-30 02:00] VITALS: O2SAT 94
[2024-05-30] MEDS: PIPERACILLIN/TAZO 3.375 GM in SODIUM CHLORIDE 0.9% 100 ML IV (04:13)
[2024-05-30 06:00] VITALS: O2SAT 94
[2024-05-30] MEDS: PANTOPRAZOLE DR 20 MG TABLET PO (06:23)
[2024-05-30 07:00] VITALS: BP 126/60; PULSE 67; RESP 18; TEMP 36.4; O2SAT 95
[2024-05-30] MEDS: MAG HYDROX/ALUM/SIMETH 30 ML UDC PO (08:13)
[2024-05-30] MEDS: DOCUSATE 100 MG CAPSULE PO (08:13)
[2024-05-30] MEDS: polyethylene glycoL 3350 17 GM POWD.PACK PO (08:14)
--- NOTE | 2024-05-30 09:37 | CM.DPNOTE ---
DCP Note VP STRATEGY reviewed EMR per chart/RN report, pt stayed overnight due to lethargy from late afternoon surgery/being in pain. plans to dc today. no new CM needs. P:, pt to dc home with spouse support and OP f/u recommended. no identified barriers to safe dc home. CM team will continue to follow as needed TOOTIE Mcmullen
[2024-05-30 10:00] VITALS: O2SAT 96
== END 2024-05-30 11:35 | disposition home or self-care (01) | DRG 418 ==
LOC: ED 22:20 → AC 22:20
PROVIDERS: Emergency Medicine; Admitting Provider Surgery; Emergency Provider Emergency Medicine; PCP Registered Nurse; Visit Provider Surgery
PROC: 0FT44ZZ Resection of Gallbladder, Percutaneous Endoscopic Approach (ICD-10-PCS; CPT 47563; principal; 2024-05-29 15:15)
DX: K80.00 Calculus of gallbladder with acute cholecystitis without obstruction (principal); K82.1 Hydrops of gallbladder; K92.1 Melena; R11.0 Nausea
CPT/HCPCS: 36415; 47563; 74022; 74300; 78226; 80053; 81003; 83605; 83690; 85025; 87040; 93005; 94762; 96361; 96374; 96375; 96376; 99223; 99284; A9537; G0378; J1171; J1644; J1885; J2405; J2543; J2704; J3010; Q9967

== ENCOUNTER → 2024-08-29 09:41 | Outpatient (CLI) | payer MEDICARE, OTHER, SELFPAY ==
[2024-05-27 23:55] VITALS: BMI 28.1
--- NOTE | 2024-08-29 09:46 | DI.RAD.S_ITS ---
PROCEDURE: XR FOOT RT MIN 3V INDICATIONS: Metatarsalgia, right foot TECHNIQUE: 3 views of the foot were acquired. COMPARISON: None. FINDINGS: Bones: Medial 1st metatarsal head shaving has partially corrected hallux valgus. An accessory ossicle adjacent to the cuboid appreciated Joints: Mild degeneration seen throughout all the midfoot joints , 1st MTP and 2nd through 5th interphalangeal joints Soft tissues: Minor calcification plantar tendon insertion. IMPRESSION: Chronic findings as described Dictated by: Yash Lozano M.D. on 08/30/2024 at 11:44 Approved by: Yash Lozano M.D. on 08/30/2024 at 11:46
== END ==
LOC: RAD 09:45
PROVIDERS: PCP Registered Nurse; Referring Provider Registered Nurse; Visit Provider Registered Nurse
DX: M77.41 Metatarsalgia, right foot (principal); M20.11 Hallux valgus (acquired), right foot; M19.071 Primary osteoarthritis, right ankle and foot
CPT/HCPCS: 73630

== ENCOUNTER 2025-01-18 07:04 | Day surgery (SDC) | payer MEDICARE, OTHER, SELFPAY ==
[2024-05-27 23:55] VITALS: BMI 28.1
--- NOTE | 2025-01-18 06:30 | P.HP_ITS ---
History of Present Illness
--- NOTE | 2025-01-18 06:30 | PM.HP.IH.1 ---
History of Present Illness History of Present Illness Date Patient Seen: 01/18/25 Time Patient Seen: 06:30 Chief complaint: Colonoscopy Narrative: 69yo F presents for screening colonoscopy today[facility] Medical History Hand laceration Surgical History S/P appendectomy Social History household members: spouse Meds Home Medications and Allergies Home Medications ?Medication ?Instructions ?Recorded ?Confirmed ?Type acetaminophen 650 mg PO PRN PRN Pain, Mild 05/27/24 05/28/24 History oxycodone 5 mg tablet 5 mg PO Q8H PRN pain, severe #7 05/29/24 Rx tabs tizanidine 2 mg tablet 2 mg PO Q8H PRN muscle spasticity 05/29/24 Rx or pain #90 tabs sodium,potassium,mag sulfates 17.5 See Rx Instructions PO .COMPLEX 05/30/24 Rx gram-3.13 gram-1.6 gram oral soln #354 mL (Suprep Bowel Prep Kit) sodium,potassium,mag sulfates 17.5 See Rx Instructions PO .COMPLEX 01/09/25 Rx gram-3.13 gram-1.6 gram oral soln #354 mL (Suprep Bowel Prep Kit) Allergies Allergy/AdvReac Type Severity Reaction Status Date / Time No Known Drug Allergies Allergy Verified 09/12/21 09:32 Exam Narrative Exam Narrative: Const General: comfortable Orientation: alert and oriented x3 Resp Effort & Inspection: normal respiratory effort and able to speak in complete sentences Cardio Rate: regular rate GI Palpation: soft (NT) Extrem General: no pedal edema and no calf tenderness Assessment & Plan Assessment and plan (1) Encounter for screening colonoscopy: Status: Acute Plan Plan screening colonoscopy, possible biopsy. The risks, benefits and options regarding the procedure were explained to the patient in detail. Risk discussion included but not limited to: bleeding, perforation, missed lesion, unable to reach cecum. The patient was encouraged to ask questions and they were answered to their satisfaction. The patient understands and is agreeable to proceed. Time-Based Coding :: [TOTAL MINUTES] spent with patient and on the chart (including review of chart, obtaining history, exam, reviewing outside data, placing orders, documenting exam and treatment plan, and counseling patient) on [DATE]. [employer] Document charge(s): Yes Charge Codes Inpatient/observation care including admit and discharge same day: [id number]
[2025-01-18 07:33] VITALS: BP 125/75; PULSE 80; RESP 18; TEMP 36.2; O2SAT 99
[2025-01-18] MEDS: LACTATED RINGERS 1,000 ML 42 ML IV (07:47)
--- NOTE | 2025-01-18 08:58 | P.OP.COLON_ITS ---
Operative Date/Time/Diagnoses
--- NOTE | 2025-01-18 08:58 | PM.OP.COLON ---
Operative Date/Time/Diagnoses Date of procedure: 01/18/25 Time of procedure: 09:22 Pre-op diagnosis: Screening colonoscopy Post-op diagnosis: same Procedure & Clinicians Study performed: Screening colonoscopy Same procedure(s) as scheduled: Yes Indications: 69yo F, for screening colonoscopy Surgeon: Quinton Thorpe Anesthesia Type: MAC +/- Procedure Notes SCOAP/Timeout: Performed Procedure in detail: Colonoscopy Patient placed in left lateral recumbent position. Time out was performed. Procedural sedation was administered by anesthesia. Examination began with a thorough inspection of the perianal area. There was no evidence of fissures, fistulae, external hemorrhoids or cutaneous malignancy. The colonoscope was then placed into the rectum and the lumen was insufflated with carbon dioxide. The scope was carefully advanced forward. Ultimately the cecum was intubated and confirmed by identification of the ileocecal valve, the appendiceal orifice and the confluence of the taenia. The scope was then slowly withdrawn examining the colon thoroughly in all directions. In the rectum, retroflexion of the scope was performed for inspection of the distal rectum and anal canal. ?Significant colonoscopy findings: ?1. Quality of the preparation-good, [place] 2-3, improved with irrigation/suction ?2. Normal colonoscopy today, no polyps, mass, stricture Scope withdrawal time: 6 minutes Specimen(s): none sent Estimated Blood Loss: 5 Complications: none Impression: Normal screening colonoscopy Post-procedure Recommendations: Colonoscopy in 10 years Plan for aftercare: PACU then home Follow up: as needed Disposition: PACU
[2025-01-18 09:25] VITALS: BP 121/74; PULSE 68; RESP 16; TEMP 36.2; O2SAT 97
[2025-01-18 09:30] VITALS: BP 116/74; PULSE 67; RESP 16; O2SAT 98
[2025-01-18 09:34] VITALS: BP 121/69; PULSE 74; RESP 16; TEMP 36.6; O2SAT 98
== END 2025-01-18 09:49 | disposition home or self-care (01) ==
PROVIDERS: Surgery; PCP Registered Nurse; Referring Provider Surgery; Visit Provider Surgery
PROC: 0DJD8ZZ Inspection of Lower Intestinal Tract, Via Natural or Artificial Opening Endoscopic (ICD-10-PCS; CPT 45378; principal; 2025-01-18 08:15)
DX: Z12.11 Encounter for screening for malignant neoplasm of colon (principal)
CPT/HCPCS: G0121; J2704; J7120